=== PATIENT | male | born 1960 | race Caucasian/White ===

== ENCOUNTER 2016-10-10 07:40 | Emergency (ER) | payer OTHER ==
[~2016-10-10] VITALS: Ht 165.1 cm; Wt 67.1 kg
--- OUTSIDE RECORDS SUMMARY | 2016-10-10 07:48 | XMS REPORT | Continuity of Care Document ---
Author Author [facility] Organization [facility] Address Unknown Phone Unavailable Allergies Medications Problems Date Dx Coded Attending Type Code Diagnosis Diagnosed By 10/10/2016 MARILOU LAWRENCE MD Ot 840.4 SPRAIN ROTATOR CUFF 10/10/2016 MARILOU LAWRENCE MD Ot E000.9 UNSPECIFIED EXTERNAL CAUSE STATUS 10/10/2016 MARILOU LAWRENCE MD Ot E849.[address] NOS 10/10/2016 MARILOU LAWRENCE MD Ot E928.9 ACCIDENT NOS 10/10/2016 MARILOU LAWRENCE MD Ot V72.84 EXAM PRE-OPERATIVE NOS Procedures Results Encounters ACCT No. Visit Date/Time Discharge Status Pt. Type Provider Facility Loc./Unit Complaint [id number] 05/10/2013 09:29:00 2012 23:59:59 CLS Outpatient MARILOU LAWRENCE MD [facility] CARD SHLDR RC TEAR [id number] 10/10/2016 07:45:00 ACT Emergency ALBERT REYNA MD [facility] ER RIGHT LEG PAIN
[2016-10-10] MEDS ORDERED: METO-272 PO (08:03)
[2016-10-10] MEDS ORDERED: OMEP20CA12 PO (08:03)
--- NOTE | 2016-10-10 08:25 | ED Lower Extremity ---
General Chief Complaint: Lower Extremity Stated Complaint: RIGHT LEG PAIN Nursing Triage Note: PT CO OF MUSCLE STRAIN R BACK OF LEG FROM BUTTOCKS TO FOOT. WALKS W DIFFICULTY Nursing Sepsis Screen: No Definite Risk Source: patient Exam Limitations: no limitations History of Present Illness Time seen by provider: 08:05 Initial Comments Here with report of right leg pain to the posterior upper leg in the area of the hamstrings. Onset of pain last night after standing up from sitting in a chair after being startled by a loud noise. He had immediate pain to the area of the right hamstring with muscle spasm. Pain is radiating up to the hip and down below the knee currently. He did take ibuprofen 800 mg this morning at about 6 a.m. and that has not helped. He has never had pain like this before. Denies any significant swelling or other injury aside from described above. Onset: yesterday Severity: moderate Pain/Injury Location: right thigh Method of Injury: other Modifying Factors: Improves With Immobilization, Worse With Movement, Improves With Pain Medication Allergies and Home Medications Home Medications Cyclobenzaprine HCl 10 Mg Tablet #15 10 MG PO Q8H PRN PRN SPASMS Prescribed by: ALBERT REYNA on 10/10/16 0850 Hydrocodone/Acetaminophen 1 Each Tablet #14 1 EACH PO Q6H Prescribed by: ALBERT REYNA on 10/10/16 0850 Metoprolol Succinate 50 Mg Tab.er.24h 50 MG PO DAILY (Reported) Omeprazole 20 Mg Capsule.dr 20 MG PO DAILY (Reported) Constitutional: see HPINo chills, No fever Respiratory: no symptoms reported Cardiovascular: no symptoms reported Musculoskeletal: see HPI muscle pain muscle stiffness Skin: no symptoms reported Psychiatric/Neurological: No Symptoms Reported Past Xknmqwf-Pylvkq-Fzvdrl Hx Patient Social History Alcohol Use: Occasionally Uses Recreational Drug Use: No Smoking Status: Current Everyday Smoker Recent Foreign Travel: No Contact w/Someone Who Travel: No Recent Infectious Disease Expo: No Recent Hopitalizations: No Seasonal Allergies Seasonal Allergies: No Surgeries HX Surgeries: No Respiratory Hx Respiratory Disorders: No Cardiovascular Hx Cardiac Disorders: Yes Cardiac Disorders: Hypertension Neurological Hx Neurological Disorders: No Gastrointestinal Hx Gastrointestinal Disorders: Yes Gastrointestinal Disorders: Gastroesophageal Reflux Reviewed Nursing Assessment Reviewed/Agree w Nursing PMH: Yes Family Medical History Significant Family History: No Pertinent Family Hx Physical Exam Vital Signs Vital Sign - Last 12Hours 10/10/16 07:40 Temp 98.8 Pulse 83 Resp 18 B/P 157/85 Pulse Ox 99 Capillary Refill : Less Than 3 Seconds General Appearance: WD/WN no apparent distress Cardiovascular: regular rate, rhythm no murmur Respiratory: lungs clear normal breath sounds Legs: right leg other (muscle spasm noted to the mid posterior right thigh in the area of the hamstrings. Pain noted on palpation. Spasm decreases lower and above. Of concern. He is able to move the leg without weakness but does have some pain on movement. Distal pulses intact bilateral and equal.) Feet: bilateral foot non-tender, bilateral foot normal inspection, bilateral foot normal range of motion, bilateral foot no evidence of injury Neurologic/Psychiatric: alert oriented x 3 Skin: normal color warm/dry Progress/Results/Core Measures Results/Orders Vital Signs/I&O Vital Sign - Last 12Hours 10/10/16 07:40 Temp 98.8 Pulse 83 Resp 18 B/P 157/85 Pulse Ox 99 Blood Pressure Mean: 109 Progress Note : Progress Note Seen and evaluated. Discharged home with return precautions. Patient verbalize understanding instructions and agreement with plan. Departure Impression Impression: Primary Impression: Right hamstring muscle strain Qualified Code: S76.311A - Strain of muscle, fascia and tendon of the posterior muscle group at thigh level, right thigh, initial encounter Disposition: 01 HOME, SELF-CARE Condition: Stable Departure-Patient Inst. Decision time for Depature: 08:30 Referrals: ALBERT PHAM DO (PCP/Family) Primary Care Physician Patient Instructions: Hamstring Muscle Strain (DC) Add. Discharge Instructions: All discharge instructions reviewed with patient and/or family. Voiced understanding. Take medications as directed. Follow-up with your DrJake in a few days for recheck. Return for worse pain, fever, vomiting, weakness, breathing problems or other concerns as needed. You may use icy hot or aspirin cream with lidocaine cream apply to the affected area per package directions. You may use ice packs or heat as needed for comfort. You may take ibuprofen 800 mg every 8 hours as needed for pain as well. Make sure you take this with food or water to prevent stomach upset. Scripts Hydrocodone/Acetaminophen (Hydrocodon-Acetaminoph 7.5-325)1 Each Tablet1 Each PO Q6H #14 TAB Prov:ALBERT REYNA MD 10/10/16 Cyclobenzaprine HCl 10 Mg Tcqtws00 Mg PO Q8H PRN SPASMS #15 TAB Prov:ALBERT REYNA MD 10/10/16 ALBERT REYNA MD Oct 10, 2016 08:25
[2016-10-10] MEDS ORDERED: HYDR-3816 PO (08:50)
[2016-10-10] MEDS ORDERED: CYCL10TA9 PO (08:50)
[2016-10-10 08:55] VITALS: BP 141/77
== END 2016-10-10 08:55 | disposition home or self-care (01) ==
LOC: EDUNIT# 07:40 → ER 07:45
DX: S76.311A Strain of muscle, fascia and tendon of the posterior muscle group at thigh level, right thigh, initial encounter (principal); I10 Essential (primary) hypertension; F17.210 Nicotine dependence, cigarettes, uncomplicated; X50.9XXA Other and unspecified overexertion or strenuous movements or postures, initial encounter; Y99.8 Other external cause status
CPT/HCPCS: 99283

== ENCOUNTER 2016-10-14 12:44 | Emergency (ER) | payer OTHER ==
[~2016-10-14] VITALS: Ht 165.1 cm; Wt 67.1 kg
[~2016-10-14 12:44] MED LIST: CYCL10TA9 PO; HYDR-3816 PO; METO-272 PO; OMEP20CA12 PO
--- OUTSIDE RECORDS SUMMARY | 2016-10-14 12:49 | XMS REPORT | Continuity of Care Document ---
Author Author [facility] Organization [facility] Address Unknown Phone Unavailable Allergies Active Description Code Type Severity Reaction Onset Reported/Identified Relationship to Patient Clinical Status Yes No Known Drug Allergies [id number] Drug Allergy Unknown N/ A 10/10/2016 Medications Problems Date Dx Coded Attending Type Code Diagnosis Diagnosed By 10/10/2016 MARILOU LAWRENCE MD Ot 840.4 SPRAIN ROTATOR CUFF 10/10/2016 MARILOU LAWRENCE MD Ot E000.9 UNSPECIFIED EXTERNAL CAUSE STATUS 10/10/2016 MARILOU LAWRENCE MD Ot E849.[address] NOS 10/10/2016 MARILOU LAWRENCE MD Ot E928.9 ACCIDENT NOS 10/10/2016 MARILOU LAWRENCE MD Ot V72.84 EXAM PRE-OPERATIVE NOS 10/11/2016 ALBERT REYNA MD Ot F17.210 NICOTINE DEPENDENCE, CIGARETTES, UNCOMPL 10/11/2016 ALBERT REYNA MD Ot I10 ESSENTIAL (PRIMARY) HYPERTENSION 10/11/2016 ALBERT REYNA MD Ot S76.301A UNSP INJ MSL/FASC/TND POST GRP AT [facility] LE 10/11/2016 ALBERT REYNA MD Ot S76.311A STRAIN MSL/FASC/TND POST GRP AT [facility] LEV, 10/11/2016 ALBERT REYNA MD Ot X50.9XXA OTHER AND UNSPECIFIED OVREXRTN OR STRNOU 10/11/2016 ALBERT REYNA MD Ot Y99.8 OTHER EXTERNAL CAUSE STATUS Procedures Results Encounters ACCT No. Visit Date/Time Discharge Status Pt. Type Provider Facility Loc./Unit Complaint [id number] 05/10/2013 09:29:00 2012 23:59:59 CLS Outpatient MARILOU LAWRENCE MD [facility] CARD SHLDR RC TEAR [id number] 10/10/2016 07:45:00 ACT Outpatient AXEL MARQUEZ, ALBERT Iyer [facility] ER RIGHT LEG PAIN
--- NOTE | 2016-10-14 14:01 | ED Lower Extremity ---
General Chief Complaint: Lower Extremity Stated Complaint: R HAMSTRING INJ, RAPID SWELLING/BRUISING Nursing Triage Note: AMB TO ROOM WAS SEEN IN ED N FRIDAY DX WITH PULLED HAMSTRING TODAY NOTICED INCREASED SWELLING WITH BRUSING. Nursing Sepsis Screen: No Definite Risk Source: patient Exam Limitations: no limitations History of Present Illness Time seen by provider: 14:01 Initial Comments 56 yo male patient presents to the ED with c/o a pulled hamstring. Patient was seen in the ED last by Dr. Holloway. Patient states today he noticed increased swelling and ecchymosis of the rt medial knee. patient is concerned that something has changed in the last 24 hours. Denies numbness, weakness, SOA , chest pain, fever. Patient has not contacted a PCP or ortho for f/u as instructed by Dr. Holloway. Patient states he has "a lot of medication left from his last ED visit." Onset: other (4-5 days) Pain/Injury Location: right leg, right knee Method of Injury: other (stood up quickly from his chair last .) Modifying Factors: Improves With Immobilization, Worse With Movement, Worse With Other (worse with palpation) Allergies and Home Medications Allergies Coded Allergies: No Known Drug Allergies (Unverified , 10/10/16) Home Medications Cyclobenzaprine HCl 10 Mg Tablet #15 10 MG PO Q8H PRN PRN SPASMS Prescribed by: ALBERT HOLLOWAY on 10/10/16 0850 Hydrocodone/Acetaminophen 1 Each Tablet #14 1 EACH PO Q6H Prescribed by: ALBERT HOLLOWAY on 10/10/16 0850 Metoprolol Succinate 50 Mg Tab.er.24h 50 MG PO DAILY (Reported) Omeprazole 20 Mg Capsule.dr 20 MG PO DAILY (Reported) Constitutional: no symptoms reported Respiratory: no symptoms reported Cardiovascular: no symptoms reported Genitourinary: no symptoms reported Musculoskeletal: No back pain, joint pain (rt knee) muscle pain (rt posterior thigh.) Skin: change in color (ecchymosis rt posterior thigh, buttock and rt knee.) Psychiatric/Neurological: Denies Numbness, Denies Paresthesia, Denies Tingling , Denies Weakness All Other Systems Reviewed Negative Unless Noted: Yes (Negative excepted noted.) Past Chvekpw-Auozic-Wcjbyu Hx Patient Social History Alcohol Use: Occasionally Uses Recreational Drug Use: No Smoking Status: Current Everyday Smoker Recent Foreign Travel: No Contact w/Someone Who Travel: No Recent Infectious Disease Expo: No Recent Hopitalizations: No Seasonal Allergies Seasonal Allergies: No Surgeries HX Surgeries: No Respiratory Hx Respiratory Disorders: No Cardiovascular Hx Cardiac Disorders: Yes Cardiac Disorders: Hypertension Neurological Hx Neurological Disorders: No Gastrointestinal Hx Gastrointestinal Disorders: Yes Gastrointestinal Disorders: Gastroesophageal Reflux Reviewed Nursing Assessment Reviewed/Agree w Nursing PMH: Yes Family Medical History Significant Family History: No Pertinent Family Hx Physical Exam Vital Signs Vital Sign - Last 12Hours 10/14/16 10/14/16 13:28 14:52 Temp 96.9 Pulse 74 Resp 18 B/P 127/70 Pulse Ox 0 Capillary Refill : Less Than 3 Seconds General Appearance: WD/WN no apparent distress Cardiovascular: normal peripheral pulses regular rate, rhythm no edema no murmur Respiratory: lungs clear normal breath sounds no respiratory distress Hips: left hip non-tender, left hip normal inspection, left hip normal range of motion, left hip no evidence of injury, right hip ecchymosis (posterior buttock and proximal thigh.), right hip limited range of motion, right hip pain , right hip soft tissue tenderness (posterior buttock), right hip swelling (rt buttock) Legs: left leg non-tender, left leg normal inspection, left leg normal range of motion, left leg no evidence of injury, right leg ecchymosis (posterior thigh ), right leg limited range of motion, right leg pain, right leg soft tissue tenderness (posterior thigh), right leg swelling (posterior thigh) Knees: left knee non-tender, left knee normal inspection, left knee normal range of motion, left knee no evidence of injury, right knee ecchymosis (medial rt knee), right knee pain, right knee soft tissue tenderness, right knee swelling (medial rt knee) Ankles: bilateral ankle non-tender, bilateral ankle normal inspection, bilateral ankle normal range of motion, bilateral ankle no evidence of injury Feet: bilateral foot non-tender, bilateral foot normal inspection, bilateral foot normal range of motion, bilateral foot no evidence of injury Neurologic/Tendon: normal sensation normal motor functions normal tendon functions responds to pain no evidence tendon injury Neurologic/Psychiatric: no motor/sensory deficits alert normal mood/affect oriented x 3 Skin: normal color warm/dry ecchymosis (rt buttock, posterior rt thigh, and medial rt knee) Progress/Results/Core Measures Results/Orders Vital Signs/I&O Vital Sign - Last 12Hours 10/14/16 10/14/16 13:28 14:52 Temp 96.9 Pulse 74 0 Resp 18 0 B/P 127/70 Pulse Ox 0 Blood Pressure Mean: 89 Departure Communication Progress Notes Patient seen and evaluated. Patient denies need for pain medication at this time. engineer technician states they do have an opening for an MRI of the RLE. This examiner notified by RN that patient was not in his room when MRI went to get him for the study. Patient is no longer in the ED or ED lobby. Patient has apparently left AMA without notifying staff. Dr. Gooden notified of patient leaving AMA. Impression Impression: Primary Impression: Left against medical advice Additional Impression: Hamstring strain Qualified Code: S76.311D - Strain of muscle, fascia and tendon of the posterior muscle group at thigh level, right thigh, subsequent encounter Disposition: 07 AGAINST MEDICAL ADVICE Condition: Against Medical Advice Departure-Patient Inst. Referrals: NO,LOCAL PHYSICIAN (PCP/Family) Primary Care Physician IBRAHIMA DUNN Oct 14, 2016 14:01
[2016-10-14 14:52] VITALS: BP 0/0
== END 2016-10-14 14:52 | disposition left against medical advice (07) ==
LOC: EDUNIT# 12:44 → ER 12:45
DX: S76.311A Strain of muscle, fascia and tendon of the posterior muscle group at thigh level, right thigh, initial encounter (principal); F17.210 Nicotine dependence, cigarettes, uncomplicated; X58.XXXA Exposure to other specified factors, initial encounter; Y99.8 Other external cause status; Z53.29 Procedure and treatment not carried out because of patient's decision for other reasons
CPT/HCPCS: 99283

== ENCOUNTER 2017-11-22 13:52 | Inpatient (IN) | payer BC, OTHER ==
[~2017-11-22] VITALS: Ht 165.1 cm; Wt 64.1 kg
[~2017-11-22 13:52] MED LIST changes: +HYDR-34 PO; -HYDR-3816 PO; -METO-272 PO; +METO-370 PO
[2017-11-22] MEDS ORDERED: ACETAMINOPHEN 500 MG TAB (TYLENOL) PO ONE (14:45)
[2017-11-22] MEDS ORDERED: IBUPROFEN 800 MG (MOTRIN) TAB PO ONE (14:45)
[2017-11-22 15:06] LABS: BASOPHILS % (AUTO) 0 % (0-10); EOSINOPHILS % (AUTO) 0 % (0-10); HEMATOCRIT 35 % (40-54); HEMOGLOBIN 13.1 G/DL (13.3-17.7); LYMPHOCYTES # (AUTO) 1.2 X 10^3 (1.0-4.0); LYMPHOCYTES % (AUTO) 12 % (12-44); MEAN CORPUSCULAR HEMOGLOBIN 34 PG (25-34); MEAN CORPUSCULAR HGB CONC 37 G/DL (32-36); MEAN CORPUSCULAR VOLUME 91 FL (80-99); MONOCYTES # (AUTO) 1.2 X 10^3 (0.0-1.0); MONOCYTES % (AUTO) 13 % (0-12); NEUTROPHILS # (AUTO) 7.2 X 10^3 (1.8-7.8); NEUTROPHILS % (AUTO) 75 % (42-75); PLATELET COUNT 198 10^3/uL (130-400); RED BLOOD COUNT 3.85 10^6/uL (4.35-5.85); WHITE BLOOD COUNT 9.6 10^3/uL (4.3-11.0)
[2017-11-22 15:22] LABS: ALANINE AMINOTRANSFERASE 13 U/L (0-55); ALBUMIN 3.8 GM/DL (3.2-4.5); ALKALINE PHOSPHATASE 70 U/L (40-136); BILIRUBIN,TOTAL 0.3 MG/DL (0.1-1.0); BUN/CREATININE RATIO 10; CALCIUM 8.6 MG/DL (8.5-10.1); CARBON DIOXIDE 20 MMOL/L (21-32); CHLORIDE 91 MMOL/L (98-107); CREATININE SERUM 0.71 MG/DL (0.60-1.30); GFR ESTIMATED > 60; GLUCOSE 108 MG/DL (70-105); POTASSIUM 3.4 MMOL/L (3.6-5.0); TOTAL PROTEIN 6.9 GM/DL (6.4-8.2)
[2017-11-22 15:25] LABS: SODIUM 122 MMOL/L (135-145)
[2017-11-22] MEDS ORDERED: NS W/KCL 20 MEQ/L 1,000 ML IV ONE (15:30)
--- NOTE | 2017-11-22 15:30 | Diagnostic Imaging Report ---
INDICATION: Fever. EXAMINATION: PA and lateral chest at 3:37 p.m. FINDINGS: The heart size is within normal limits and stable when compared to 05/10/2013. In the interval since the prior study, a vague area of increased density has developed in the left superhilar region and to a lesser extent the left infrahilar region. I do suspect that this finding is secondary to mild pneumonia/atelectasis. The right lung is clear. There is no sign of a pleural effusion. The mediastinum is not widened. The osseous structures are intact. IMPRESSION: In the interval since the prior study, mild left perihilar pneumonia/atelectasis has developed. A followup exam should be considered for further evaluation. Dictated by: Dictated on workstation # [id number]
[2017-11-22] MEDS ORDERED: cefTRIAXone INJECTION 1,000 MG in NS (IVPB) 100 ML IV ONE (15:45)
[2017-11-22] MEDS ORDERED: IOHEXOL 350 MG/ML 150 ML (OMNIPAQUE 350) VIAL IV ONE (16:00)
[2017-11-22] MEDS ORDERED: NS 100 ML (IVPB) BAG IV ONE (16:00)
--- NOTE | 2017-11-22 16:43 | Diagnostic Imaging Report ---
PROCEDURE: CT angiography of the chest with contrast. TECHNIQUE: Multiple contiguous axial images were obtained through the chest after uneventful bolus administration of intravenous contrast. Reconstructed CTA MIP acquisitions were also performed. INDICATION: Fever, short of air, cough. FINDINGS: There is groundglass infiltrate in the left upper lobe. The left lower lobe and the right lung are clear. There is no effusion or pneumothorax. There is no mediastinal mass or adenopathy. There is no aortic dissection. There is no pulmonary embolus. IMPRESSION: There is left upper lobe infiltrate consistent with pneumonia. There is no pulmonary embolus. Dictated by: Dictated on workstation # [id number]
[2017-11-22 17:02] VITALS: BP 113/69
[2017-11-22] MEDS ORDERED: AZITHROMYCIN 500 MG/NS 250 ML IVPB IV NR ×2 (17:14)
[2017-11-22] MEDS ORDERED: ACETAMINOPHEN 500 MG TAB (TYLENOL) PO PRN (17:15)
--- NOTE | 2017-11-22 17:26 | History & Physical-Hospitalist ---
History of Present Illness HPI/Chief Complaint Pt is a 57yoCM with a PMH of tobacco abuse and HTN who presented to the ER with a 4 day history of fever. He was seen at an Urgent Care on 11/20 and was treated for the flu but was tested and flu negative. He continued to worsen and get fevers despite treatment with Tamiflu. He also developed diarrhea. He presented back to the Urgent Care this morning and was given antibiotics but continued to feel worse. At that time upon his 's insistence he presented to the ER for evaluation. He complains of body aches, fatigue, and a headache. He has had a cough as well with some sputum production. He denies any sick contacts. He has no previous history of pneumonia. He reports feeling okay now since his fever has gone down. He was found to have a SERGEY pneumonia on CT chest and was admitted to the hospital for failed outpatient abx. Source: patient Date Seen 11/22/17 Time Seen by Provider: 17:10 Attending Physician Debby Vick MD PCP Grace Santillan Referring Physician Date of Admission Nov 22, 2017 at 15:45 Home Medications & Allergies Home Medications Reviewed patient Home Medication Reconciliation performed by pharmacy medication reconciliations conveyor technician and/or nursing. Patients Allergies have been reviewed. Allergies Allergies Coded Allergies No Known Drug Allergies (Unverified10/10/16) Past Treepkz-Qmbjbr-Cjgnxd Hx Past Med/Social Hx: Reviewed Nursing Past Med/Soc Hx, Reviewed and Corrections made Patient Social History Marrital Status: Employed/Student: employed Alcohol Use: Regular Use (4-5 beers per day) Number of Drinks Today: AA Alcohol Beverage of Choice: Beer Recreational Drug Use: No Smoking Status: Current Everyday Smoker Cigaretts per day: 20 Type Used: Cigarettes Recent Foreign Travel: No Contact w/other who traveled: No Recent Hopitalizations: No Recent Infectious Disease Expo: No Seasonal Allergies Seasonal Allergies: No Past Medical History Surgeries: Orthopedic (shoulder) Cardiac: Hypertension Gastrointestinal: Gastroesophageal Reflux Family History Reviewed and Corrections made Heart Disease, Cancer, Hypertension Review of Systems Constitutional: chills, fever, malaise, weakness EENTM: No blurred vision, No double vision, No nose congestion, No throat pain Respiratory: cough, No dyspnea on exertion, No hemoptysis, phlegm, No short of breath, No wheezing Cardiovascular: No chest pain, No edema, No palpitations Gastrointestinal: No abdominal pain, No constipation, No diarrhea, No nausea, No vomiting Genitourinary: No dysuria, No frequency Musculoskeletal: No joint pain, No muscle pain Skin: No lesions, No rash Psychiatric/Neurological: Denies Headache, Denies Numbness, Denies Tingling Physical Exam Physical Exam Vital Signs Vital Signs - First Documented 11/22/17 14:30 Temp 102.4 Pulse 97 Resp 18 B/P (MAP) 113/98 (103) Pulse Ox 97 O2 Delivery Room Air Capillary Refill : Less Than 3 Seconds General Appearance: No Apparent Distress, WD/WN HEENT: PERRL/EOMI, Moist Mucous Membranes, No Scleral Icterus (L), No Scleral Icterus (R) Neck: Non Tender, Supple, No JVD, No Thyromegaly Respiratory: No Respiratory Distress, Crackles Cardiovascular: Regular Rate, Rhythm, No Murmur, Normal Peripheral Pulses Gastrointestinal: Normal Bowel Sounds, Non Tender, Soft Extremity: Normal Capillary Refill, No Calf Tenderness, No Pedal Edema Neurologic/Psychiatric: Alert, Oriented x3, No No Motor/Sensory Deficits, Normal Mood/Affect, No Aphasia, No Facial Droop Skin: Normal Color, Warm/Dry Results Results/Procedures Labs Laboratory Tests 11/22/17 14:58 11/23/17 06:02 Patient resulted labs reviewed. Imaging: Reviewed Imaging Films Assessment/Plan Admission Diagnosis Sepsis due to CAP Admission Status: Inpatient Order (span 2 midnights) Reason for Inpatient Admission: failed outpatient antibiotics Diagnosis/Problems Diagnosis/Problems (1) Pneumonia Status: Acute Assessment & Plan: Failed outpatient antibiotics Will continue CAP coverage with Rocephin and Azithromycin Qualifiers: Pneumonia type: due to unspecified organism Laterality: left Lung location: upper lobe of lung Qualified Codes: J18.1 - Lobar pneumonia, unspecified organism (2) Essential (primary) hypertension Status: Chronic Assessment & Plan: Low to normotensive on arrival Will hold home meds (3) Hyponatremia Status: Acute Assessment & Plan: likely beer potomania from daily alcohol use Trend (4) Hypokalemia Status: Acute Assessment & Plan: Resolved (5) Tobacco abuse Status: Chronic Assessment & Plan: Recommended cessation >3m spent on cessation therapy He would like to quit and has not smoke since this started 3 days ago Has tried in the past and failed SO at bedside and very encouraging He is considering stopping cold turkey (6) Prophylactic measure Assessment & Plan: SCDs IVF reg diet Clinical Quality Measures Sepsis: Within 3hrs of presentation: Admin ABX, Blood cultures prior to ABX's, Lactate level Pneumonia: Pseudomonal Risk: No known risk Smoking Cessation Counseling: Counseling-Symptomatic: 3-10 Minutes Discussed Options Including: Chantix, Nicotine Patch DEBBY VICK MD Nov 22, 2017 5:26 pm
[2017-11-22] MEDS: NS W/KCL 20 MEQ/L 1,000 ML IV SCH (17:41)
[2017-11-22] MEDS: LOPERAMIDE 2 MG (IMODIUM) CAP PO PRN (18:29)
--- NOTE | 2017-11-22 18:30 | ED Cough/URI ---
General Chief Complaint: Cough/Cold/Flu Symptoms Stated Complaint: PNEUMONIA,HYPONATREMIA,HYPOKALEMIA Nursing Triage Note: TO ROOM REPORTS HAS BEEN SICK SINCE FRIDAY. WAS SEEN AT [facility] AND STARTED ON TAMIFLU CON'T TO HAVE TEMP WAS SEEN AT [facility] TODAY FOR CON'T TEMP. STARTED ON ZITHROMAX. Source: patient History of Present Illness Date Seen by Provider: Nov 22, 2017 Time Seen by Provider: 14:35 Initial Comments PT STATES HE BEGAN GETTING SICK ON Friday11/20/17 HAS HAD FEVER UP TO 103.3--HAD 800 MG IBUPROFEN AT 1330 TODAY C/O NON-PRODUCTIVE COUGH C/O HEADACHE C/O BODY ACHES C/O GENERALIZED WEAKNESS NO CHEST PAIN OR SHORTNESS OF BREATH NO NECK STIFFNESS OR SORENESS NO NAUSEA/VOMITING/DIARRHEA OR ABDOMINAL PAIN BUT HAS HAD DECREASED APPETITE NO KNOWN SICK CONTACTS DID NOT RECEIVE FLU VACCINATION THIS YEAR PT WAS SEEN AT [facility] ON FRIDAY AND TESTED NEGATIVE FOR INFLUENZA BUT WAS PLACED ON TAMIFLU DUE TO SYMPTOMS CONSISTENT WITH INFLUENZA PT WAS SEEN THERE AGAIN AT 10 AM TODAY BECAUSE SYMPTOMS WERE NOT BETTER. WAS PRESCRIBED CEFDINIR AND ZITHROMAX--HAS HAD ONE DOSE OF EACH TODAY PT STATES HE HAS CONTINUED TO FEEL WORSE, SO CAME HERE NO HISTORY OF RESPIRATORY OR CARDIAC PROBLEMS HAS BEEN DX WITH HTN IN THE PAST, BUT IS NOT TAKING ANY MEDICATION FOR IT. 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 PHAM LEFT THE PRACTICE. Allergies and Home Medications Allergies Coded Allergies: No Known Drug Allergies (Unverified , 10/10/16) Home Medications Metoprolol Succinate 50 Mg Tab.er.24h, 100 MG PO DAILY, (Reported) Omeprazole 20 Mg Capsule.dr, 20 MG PO DAILY, (Reported) Patient Home Medication List Home Medication List Reviewed: Yes Constitutional: see HPI, chills, fever, malaise, weakness EENTM: no symptoms reported, No blurred vision, No nose congestion, No throat pain Respiratory: see HPI, cough, No phlegm, No short of breath, No wheezing Cardiovascular: no symptoms reported, No chest pain, No edema, No palpitations , No syncope, No vascular heart diseas Gastrointestinal: see HPI, No abdominal pain, No diarrhea, loss of appetite, No nausea, No vomiting Genitourinary: no symptoms reported, No decreased output Musculoskeletal: see HPI, other (BODY ACHES) Skin: no symptoms reported, No rash Psychiatric/Neurological: See HPI, Headache, Denies Numbness, Denies Paresthesia, Denies Seizure, Denies Tingling, Denies Tremors, Denies Weakness Hematologic/Lymphatic: No Symptoms Reported Immunological/Allergic: no symptoms reported Past Zdhosxk-Tilrnl-Wcfuzj Hx Patient Social History Alcohol Use: Regular Use Number of Drinks Today: AA Alcohol Beverage of Choice: Beer Recreational Drug Use: No Smoking Status: Current Everyday Smoker (1 PPD) Type Used: Cigarettes (1 PPD) Recent Foreign Travel: No Contact w/Someone Who Travel: No Recent Infectious Disease Expo: No Recent Hopitalizations: No Seasonal Allergies Seasonal Allergies: No Surgeries History of Surgeries: Yes (3 LEFT AND 3 RIGHT SHOULDER SURGERIES. ONE LEFT SHOULDER SURGERY WAS FOR AC SEPARATION, ALL OTHERS WERE FOR ROTATOR CUFF PROBLEMS. ) Surgeries: Orthopedic (shoulder) Respiratory History of Respiratory Disorde: Yes Respiratory Disorders: Sleep Apnea Currently Using CPAP: No Currently Using BIPAP: No Cardiovascular History of Cardiac Disorders: Yes (NO MEDICATIONS) Cardiac Disorders: Hypertension Neurological History of Neurological Disord: No Reproductive System HIV/AIDS: No Genitourinary History of Genitourinary Disor: No Gastrointestinal History of Gastrointestinal Di: Yes (NO MEDICATIONS) Gastrointestinal Disorders: Gastroesophageal Reflux, Hemorrhoids Musculoskeletal History of Musculoskeletal Dis: Yes (JOINTS HURT;MULTIPLE BILATERAL SHOULDER SURGERIES) Musculoskeletal Disorders: Arthritis Endocrine History of Endocrine Disorders: No HEENT History of HEENT Disorders: No Loss of Vision: Denies Hearing Impairment: Denies Cancer History of Cancer: No Psychosocial History of Psychiatric Problem: No Integumentary History of Skin or Integumenta: No Blood Transfusions History of Blood Disorders: No Family Medical History Significant Family History: Heart Disease, Cancer, Hypertension Family Medial History: Wisdom's disease Arthritis 19 FATHER 19 MOTHER Asthma G8 BROTHER Colon cancer 19 FATHER Hypercholesterolemia 19 FATHER Hypertension 19 FATHER Myocardial infarction 19 FATHER Thyroid disease G8 SISTER Physical Exam Vital Signs Vital Signs - First Documented 11/22/17 14:30 Temp 102.4 Pulse 97 Resp 18 B/P (MAP) 113/98 (103) Pulse Ox 97 O2 Delivery Room Air Capillary Refill : Less Than 3 Seconds General Appearance: WD/WN, no apparent distress, other (FACE VERY FLUSHED. MILDLY LETHARGIC. 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 ) Focused Exam Evaluation Lactate Level Laboratory Tests 11/22/17 14:58: Lactic Acid Level 0.53 Lactic Acid Level Laboratory Tests Test 11/22/17 14:58 Lactic Acid Level 0.53 MMOL/L (0.50-2.00) Progress/Results/Core Measures Suspected Sepsis Recent Fever Within 48 Hours: Yes Infection Criteria Present: Suspected New Infection New/Unexplained Altered Menta: No Sepsis Screen: No Definite Risk Sepsis Diagnosis: SIRS Temperature:97.4 Pulse: 88 Respiratory Rate: 18 Laboratory Tests 11/22/17 14:58: White Blood Count 9.6 Blood Pressure 127 /78 Mean: 103 Laboratory Tests 11/22/17 14:58: Lactic Acid Level 0.53 Laboratory Tests 11/22/17 14:58: Creatinine 0.71, Platelet Count 198, Total Bilirubin 0.3 Results/Orders Lab Results Laboratory Tests Test 11/22/17 14:58 Range/Units White Blood Count 9.6 4.3-11.0 10^3/uL Red Blood Count 3.85 L 4.35-5.85 10^6/uL Hemoglobin 13.1 L 13.3-17.7 G/DL Hematocrit 35 L 40-54 % Mean Corpuscular Volume 91 80-99 FL Mean Corpuscular Hemoglobin 34 25-34 PG Mean Corpuscular Hemoglobin Concent 37 H 32-36 G/DL Red Cell Distribution Width 11.0 10.0-14.5 % Platelet Count 198 130-400 10^3/uL Mean Platelet Volume 9.0 7.4-10.4 FL Neutrophils (%) (Auto) 75 42-75 % Lymphocytes (%) (Auto) 12 12-44 % Monocytes (%) (Auto) 13 H 0-12 % Eosinophils (%) (Auto) 0 0-10 % Basophils (%) (Auto) 0 0-10 % Neutrophils # (Auto) 7.2 1.8-7.8 X 10^3 Lymphocytes # (Auto) 1.2 1.0-4.0 X 10^3 Monocytes # (Auto) 1.2 H 0.0-1.0 X 10^3 Eosinophils # (Auto) 0.0 0.0-0.3 10^3/uL Basophils # (Auto) 0.0 0.0-0.1 10^3/uL Sodium Level 122 *L 135-145 MMOL/L Potassium Level 3.4 L 3.6-5.0 MMOL/L Chloride Level 91 L 98-107 MMOL/L Carbon Dioxide Level 20 L 21-32 MMOL/L Anion Gap 11 5-14 MMOL/L Blood Urea Nitrogen 7 7-18 MG/DL Creatinine 0.71 0.60-1.30 MG/DL Estimat Glomerular Filtration Rate > 60 BUN/Creatinine Ratio 10 Glucose Level 108 H 70-105 MG/DL Lactic Acid Level 0.53 0.50-2.00 MMOL/L Calcium Level 8.6 8.5-10.1 MG/DL Total Bilirubin 0.3 0.1-1.0 MG/DL Aspartate Amino Transf (AST/SGOT) 18 5-34 U/L Alanine Aminotransferase (ALT/SGPT) 13 0-55 U/L Alkaline Phosphatase 70 40-136 U/L Total Protein 6.9 6.4-8.2 GM/DL Albumin 3.8 3.2-4.5 GM/DL Micro Results Microbiology 11/22/17 Influenza Types A,B Antigen (AVERY) - Final, Complete My Orders Orders - FLORYAMYA Marleni DO Saline Lock/Iv-Start (11/22/17 14:33) Monitor-Rhythm Ecg Trace Only (11/22/17 14:33) Cbc With Automated Diff (11/22/17 14:33) Comprehensive Metabolic Panel (11/22/17 14:33) Lactic Acid Analyzer (11/22/17 14:33) Blood Culture (11/22/17 14:33) Influenza A And B Antigens (11/22/17 14:33) Chest Pa/Lat (2 View) (11/22/17 14:33) Ibuprofen Tablet (Motrin Tablet) (11/22/17 14:45) Acetaminophen Tablet (Tylenol Tablet) (11/22/17 14:45) Ns W/Kcl 20 Meq/L (Ns Iv W/Kcl 20 Meq/L) (11/22/17 15:30) Ceftriaxone Injection (Rocephin Injectio (11/22/17 15:45) Medications Given in ED Current Medications Medications Dose Ordered Sig/Mackenzie Route Start Time Stop Time Status Last Admin Dose Admin Acetaminophen 1,000 mg ONCE ONCE PO 11/22/17 14:45 11/22/17 14:46 DC 11/22/17 15:39 1,000 MG Ceftriaxone Sodium 1000 mg/ Sodium Chloride 100 ml @ 200 mls/hr ONCE ONCE IV 11/22/17 15:45 11/22/17 16:14 DC 11/22/17 15:48 200 MLS/HR Potassium Chloride/Sodium Chloride 1,000 ml @ 100 mls/hr Q10H ONCE IV 11/22/17 15:30 11/22/17 17:11 DC 11/22/17 15:48 100 MLS/HR Vital Signs/I&O Vital Sign - Last 12Hours 11/22/17 14:30 Temp 102.4 Pulse 97 Resp 18 B/P (MAP) 113/98 (103) Pulse Ox 97 O2 Delivery Room Air Capillary Refill : Less Than 3 Seconds Blood Pressure Mean: 103 Progress Note : Progress Note NO DETERIORATION IN PT'S CONDITION DURING ER STAY TEMP BEGINNING TO COME DOWN AT TIME OF ADMIT. NO COUGH NOTED DURING ER STAY Diagnostic Imaging Comments CXR--LEFT PERIHILAR PNEUMONIA, PER RADIOLOGIST REPORT @ 1531 CT CHEST ANGIOGRAM--SERGEY INFILTRATE, NO P.E. --PER RADIOLOGIST REPORT @ 1653 Reviewed: Reviewed by Me Departure Communication (Admissions) Progress Notes 1545--SPOKE WITH DR. RIVERA, ACCEPTS PT FOR ADMIT. Impression Impression: Primary Impression: SERGEY PNEUMONIA Additional Impressions: Hyponatremia Hypokalemia Disposition: ADMITTED INPATIENT Condition: Improved Admissions Decision to Admit Reason: Admit from ER (General) Decision to Admit/Date: Nov 22, 2017 Time/Decision to Admit Time: 15:45 Departure-Patient Inst. Referrals: DONNA,BESSIE DIRECTOR TELEVISION (PCP) Primary Care Physician JORDAN RUTH DO Nov 22, 2017 18:29
[2017-11-22 19:02] VITALS: BP 124/75
[2017-11-22] MEDS ORDERED: RT-ALBUTEROL/IPRATROPIUM 3 ML (DUONEB) VIAL INH PRN (20:30)
[2017-11-22 21:15] VITALS: BP 139/83
[2017-11-22] MEDS: RT-ALBUTEROL/IPRATROPIUM 3 ML (DUONEB) VIAL INH SCH (21:20)
[2017-11-22] MEDS: IBUPROFEN 800 MG (MOTRIN) TAB PO PRN (23:59)
[2017-11-23] VITALS: BP 160/74
[2017-11-23] MEDS: NS W/KCL 20 MEQ/L 1,000 ML IV SCH ×3 (02:32→15:22)
[2017-11-23 04:00] VITALS: BP 117/63
[2017-11-23] MEDS: LOPERAMIDE 2 MG (IMODIUM) CAP PO PRN ×3 (05:09→15:22)
[2017-11-23] MEDS: LACTOBACILLUS Acidoph/Bulgar (LACTINEX/FLORANEX) TAB PO SCH ×3 (05:09→16:37)
[2017-11-23 06:35] LABS: BASOPHILS % (AUTO) 0 % (0-10); EOSINOPHILS % (AUTO) 0 % (0-10); HEMATOCRIT 37 % (40-54); HEMOGLOBIN 13.3 G/DL (13.3-17.7); LYMPHOCYTES # (AUTO) 1.1 X 10^3 (1.0-4.0); LYMPHOCYTES % (AUTO) 14 % (12-44); MEAN CORPUSCULAR HEMOGLOBIN 34 PG (25-34); MEAN CORPUSCULAR HGB CONC 36 G/DL (32-36); MEAN CORPUSCULAR VOLUME 92 FL (80-99); MEAN PLATELET VOLUME 9.3 FL (7.4-10.4); MONOCYTES # (AUTO) 1.1 X 10^3 (0.0-1.0); MONOCYTES % (AUTO) 15 % (0-12); NEUTROPHILS # (AUTO) 5.4 X 10^3 (1.8-7.8); NEUTROPHILS % (AUTO) 71 % (42-75); PLATELET COUNT 209 10^3/uL (130-400); RED BLOOD COUNT 3.97 10^6/uL (4.35-5.85); RED CELL DISTRIBUTION WIDTH 11.3 % (10.0-14.5); WHITE BLOOD COUNT 7.6 10^3/uL (4.3-11.0)
[2017-11-23 07:00] LABS: BUN/CREATININE RATIO 9; CARBON DIOXIDE 19 MMOL/L (21-32); CHLORIDE 102 MMOL/L (98-107); CREATININE SERUM 0.67 MG/DL (0.60-1.30); POTASSIUM 4.5 MMOL/L (3.6-5.0); SODIUM 129 MMOL/L (135-145)
[2017-11-23 07:01] LABS: ALANINE AMINOTRANSFERASE 14 U/L (0-55); ALBUMIN 3.6 GM/DL (3.2-4.5); ALKALINE PHOSPHATASE 69 U/L (40-136); BILIRUBIN,TOTAL 0.2 MG/DL (0.1-1.0); CALCIUM 8.4 MG/DL (8.5-10.1); GFR ESTIMATED > 60; GLUCOSE 97 MG/DL (70-105); TOTAL PROTEIN 6.7 GM/DL (6.4-8.2)
[2017-11-23] MEDS ORDERED: INFLUENZA TRIvalent 2017-2018 0.5 ML/45 MCG SYR IM ONE (07:30)
[2017-11-23 08:00] VITALS: BP 152/72
[2017-11-23] MEDS: IBUPROFEN 800 MG (MOTRIN) TAB PO PRN (10:04)
--- NOTE | 2017-11-23 11:33 | Progress Note-Hospitalist ---
Subjective HPI/CC On Admission Date Seen by Provider: Nov 23, 2017 Time Seen by Provider: 11:31 Pt is a 57yoCM with a PMH of tobacco abuse and HTN who presented to the ER with a 4 day history of fever. He was seen at an Urgent Care on 11/20 and was treated for the flu but was tested and flu negative. He continued to worsen and get fevers despite treatment with Tamiflu. He also developed diarrhea. He presented back to the Urgent Care this morning and was given antibiotics but continued to feel worse. At that time upon his 's insistence he presented to the ER for evaluation. He complains of body aches, fatigue, and a headache. He has had a cough as well with some sputum production. He denies any sick contacts. He has no previous history of pneumonia. He reports feeling okay now since his fever has gone down. He was found to have a SERGEY pneumonia on CT chest and was admitted to the hospital for failed outpatient abx. Subjective/Events-last exam Pt complains of ever and feeling hot but getting better. He has continued to have diarrhea as well (started prior to admission on 11/20 when placed on Tamiflu ). He otherwise has no complaints. Focused Exam Evaluation Lactate Level Laboratory Tests 11/22/17 14:58: Lactic Acid Level 0.53 Objective Exam Vital Signs Vital Signs Date Time Temp Pulse Resp B/P (MAP) Pulse Ox O2 Delivery O2 Flow Rate FiO2 11/22/17 14:30 102.4 97 18 113/98 (103) 97 Room Air Capillary Refill : Less Than 3 Seconds General Appearance: No Apparent Distress, WD/WN Respiratory: No Accessory Muscle Use, No Respiratory Distress, Crackles (left base) Cardiovascular: Regular Rate, Rhythm, No Murmur Gastrointestinal: Normal Bowel Sounds, Non Tender, Soft Extremity: No Calf Tenderness, No Pedal Edema Neurologic/Psychiatric: Alert, Oriented x3, Normal Mood/Affect Results/Procedures Lab Laboratory Tests 11/22/17 14:58 11/23/17 06:02 Patient resulted labs reviewed. Assessment/Plan Assessment and Plan Assess & Plan/Chief Complaint Sepsis CAP Diagnosis/Problems Diagnosis/Problems (1) Pneumonia Status: Acute Assessment & Plan: Failed outpatient abx Remains febrile overnight Continue Tylenol and Ibuprofen Continue Rocephin and Azithro Will consult Pulm Qualifiers: Pneumonia type: due to unspecified organism Laterality: left Lung location: upper lobe of lung Qualified Codes: J18.1 - Lobar pneumonia, unspecified organism (2) Hypokalemia Status: Resolved Assessment & Plan: Resolved with fluids (3) Hyponatremia Status: Acute Assessment & Plan: Likely due to beer potomania Improving with IVF trend (4) Tobacco abuse Status: Chronic Assessment & Plan: Recommended cessation 11/22 So far attempting cold turkey- declining nicotine patch (5) Essential (primary) hypertension Status: Chronic Assessment & Plan: Trending up today Will monitor and resume home meds if stay high (6) Alcohol dependence Assessment & Plan: No symptoms of withdrawal Last drink was 11/19 Has gone days without drinking in the past and has never had withdrawal Qualifiers: Substance use status: uncomplicated Qualified Codes: F10.20 - Alcohol dependence, uncomplicated (7) Prophylactic measure Assessment & Plan: Lovenox Reg Diet NS+ 20KCL at 75ml/hr Clinical Quality Measures DVT/VTE Risk/Contraindication: Risk Factor Score Per Nursin RFS Level Per Nursing on Admit: 2=Moderate DEBBY RIVERA MD Nov 23, 2017 11:33 am
[2017-11-23 12:00] VITALS: BP 118/59
[2017-11-23] MEDS ORDERED: AZIT250T12 PO (13:38)
[2017-11-23] MEDS ORDERED: CEFD300C3 PO (13:38)
[2017-11-23] MEDS ORDERED: METO100T12 PO (13:38)
[2017-11-23] MEDS ORDERED: IBUP-1780 PO (13:38)
[2017-11-23] MEDS ORDERED: OSEL75CA15 PO (13:38)
[2017-11-23] MEDS ORDERED: CYCL10TA9 PO (13:38)
[2017-11-23] MEDS: RT-ALBUTEROL/IPRATROPIUM 3 ML (DUONEB) VIAL INH SCH ×3 (15:00→20:39)
[2017-11-23] MEDS: ENOXAPARIN 40 MG/0.4 ML (LOVENOX) SYR SC SCH (15:23)
[2017-11-23] MEDS: cefTRIAXone 1 GM/NS 100 ML IVPB IV SCH ×2 (16:37)
[2017-11-23 16:43] VITALS: BP 119/63
[2017-11-23] MEDS: AZITHROMYCIN 250 MG TAB (ZITHROMAX) PO SCH (18:27)
[2017-11-23 20:00] VITALS: BP 133/83
[2017-11-24] VITALS: BP 134/62
[2017-11-24 04:00] VITALS: BP 112/56
[2017-11-24] MEDS: LACTOBACILLUS Acidoph/Bulgar (LACTINEX/FLORANEX) TAB PO SCH ×3 (04:57→16:51)
[2017-11-24 06:20] LABS: BASOPHILS % (AUTO) 0 % (0-10); EOSINOPHILS # (AUTO) 0.1 10^3/uL (0.0-0.3); EOSINOPHILS % (AUTO) 1 % (0-10); HEMATOCRIT 33 % (40-54); HEMOGLOBIN 12.2 G/DL (13.3-17.7); LYMPHOCYTES # (AUTO) 1.6 X 10^3 (1.0-4.0); LYMPHOCYTES % (AUTO) 23 % (12-44); MEAN CORPUSCULAR HEMOGLOBIN 34 PG (25-34); MEAN CORPUSCULAR HGB CONC 37 G/DL (32-36); MEAN CORPUSCULAR VOLUME 92 FL (80-99); MEAN PLATELET VOLUME 9.2 FL (7.4-10.4); MONOCYTES # (AUTO) 1.3 X 10^3 (0.0-1.0); MONOCYTES % (AUTO) 18 % (0-12); NEUTROPHILS # (AUTO) 4.2 X 10^3 (1.8-7.8); NEUTROPHILS % (AUTO) 59 % (42-75); PLATELET COUNT 223 10^3/uL (130-400); RED BLOOD COUNT 3.61 10^6/uL (4.35-5.85); RED CELL DISTRIBUTION WIDTH 11.4 % (10.0-14.5); WHITE BLOOD COUNT 7.2 10^3/uL (4.3-11.0)
[2017-11-24 06:32] LABS: BUN/CREATININE RATIO 6; CALCIUM 8.2 MG/DL (8.5-10.1); CARBON DIOXIDE 19 MMOL/L (21-32); CHLORIDE 99 MMOL/L (98-107); CREATININE SERUM 0.63 MG/DL (0.60-1.30); GFR ESTIMATED > 60; GLUCOSE 104 MG/DL (70-105); POTASSIUM 3.8 MMOL/L (3.6-5.0); SODIUM 126 MMOL/L (135-145)
[2017-11-24] MEDS: NS W/KCL 20 MEQ/L 1,000 ML IV SCH ×3 (06:35→21:12)
[2017-11-24] MEDS: RT-ALBUTEROL/IPRATROPIUM 3 ML (DUONEB) VIAL INH SCH ×3 (07:23→19:22)
--- NOTE | 2017-11-24 07:56 | Pulmonary Consultation ---
History of Present Illness History of Present Illness Date of Consultation 11/24/17 07:50 Time Seen by Provider: 07:51 Date of Admission History of Present Illness 57yo with hx of tobacco use and HTN presented to ED after 4 days of worsening fever, diarrhea, body aches. He was seen on 11/20 at Urgent Care and treated for the flu. pt was dx with pneumonia in the ED failed out patient treatment and admitted for inpatient treatment. I am consulted for pulmonary management. Allergies and Home Medications Allergies Coded Allergies: No Known Drug Allergies (Unverified , 10/10/16) Home Medications Azithromycin 250 Mg Tablet, 250 MG PO DAILY, (Reported) FILLED 11/22/17 #6 FOR A 5 DAY THERAPY / 500 MG DAY 1, THEN 250 MG DAYS 2-5 Cefdinir 300 Mg Capsule, 300 MG PO BID, (Reported) FILLED 11/22/17 #20 FOR A 10 DAY THERAPY Ibuprofen 800 Mg Tablet, 800 MG PO Q8H PRN for HEADACHE, (Reported) Metoprolol Tartrate 100 Mg Tablet, 100 MG PO DAILY, (Reported) Omeprazole 20 Mg Capsule.dr, 20 MG PO DAILY, (Reported) Oseltamivir Phosphate 75 Mg Capsule, 75 MG PO BID, (Reported) FILLED 11/20/17 #10 FOR A 5 DAY THERAPY Past Dugetoq-Gypfrp-Mvrntc Hx Patient Social History Alcohol Use: Regular Use Number of Drinks Today: AA Alcohol Beverage of Choice: Beer Recreational Drug Use: No Smoking Status: Current Everyday Smoker (1 PPD) Type Used: Cigarettes (1 PPD) Recent Foreign Travel: No Contact w/Someone Who Travel: No Recent Infectious Disease Expo: No Recent Hopitalizations: No Seasonal Allergies Seasonal Allergies: No Surgeries History of Surgeries: Yes (3 LEFT AND 3 RIGHT SHOULDER SURGERIES. ONE LEFT SHOULDER SURGERY WAS FOR AC SEPARATION, ALL OTHERS WERE FOR ROTATOR CUFF PROBLEMS. ) Surgeries: Orthopedic (shoulder) Respiratory History of Respiratory Disorde: Yes Respiratory Disorders: Sleep Apnea Currently Using CPAP: No Currently Using BIPAP: No Cardiovascular History of Cardiac Disorders: Yes (NO MEDICATIONS) Cardiac Disorders: Hypertension Neurological History of Neurological Disord: No Reproductive System HIV/AIDS: No Genitourinary History of Genitourinary Disor: No Gastrointestinal History of Gastrointestinal Di: Yes (NO MEDICATIONS) Gastrointestinal Disorders: Gastroesophageal Reflux, Hemorrhoids Musculoskeletal History of Musculoskeletal Dis: Yes (JOINTS HURT;MULTIPLE BILATERAL SHOULDER SURGERIES) Musculoskeletal Disorders: Arthritis Endocrine History of Endocrine Disorders: No HEENT History of HEENT Disorders: No Loss of Vision: Denies Hearing Impairment: Denies Cancer History of Cancer: No Psychosocial History of Psychiatric Problem: No Integumentary History of Skin or Integumenta: No Blood Transfusions History of Blood Disorders: No Family Medical History Significant Family History: Heart Disease, Cancer, Hypertension Family Medial History: [place]'s disease Arthritis 19 FATHER 19 MOTHER Asthma G8 BROTHER Colon cancer 19 FATHER Hypercholesterolemia 19 FATHER Hypertension 19 FATHER Myocardial infarction 19 FATHER Thyroid disease G8 SISTER Review of Systems Time Seen by Provider: 08:01 Constitutional: Fever, Chills, Sweats, Weakness, Malaise Eyes: No: Pain, Vision change, Conjunctivae inflammation, Eyelid inflammation, Other, Redness ENT: Nose discharge, Nose congestion Respiratory: Cough, Dry, Shortness of breath, SOB with excertion Musculoskeletal: back pain Neurological: Weakness, No: Change in speech, Confusion Exam Exam Vital Signs Date Time Temp Pulse Resp B/P (MAP) Pulse Ox O2 Delivery O2 Flow Rate FiO2 11/24/17 07:35 94 Room Air 11/24/17 07:00 75 11/24/17 04:00 100.1 82 18 112/56 (74) 94 Room Air 11/24/17 01:00 95 11/24/17 00:00 100.6 86 16 134/62 (86) 96 Room Air 11/23/17 21:00 Room Air 11/23/17 20:39 93 Room Air 11/23/17 20:00 100.9 82 16 133/83 (100) 99 Room Air 11/23/17 19:00 77 11/23/17 16:43 97.1 72 18 119/63 (81) 98 Room Air 11/23/17 15:25 98 Room Air 11/23/17 13:00 87 11/23/17 12:00 99.4 80 18 118/59 (78) 95 Room Air 11/23/17 10:14 101.0 11/23/17 09:36 Room Air 11/23/17 09:00 101.8 11/23/17 08:00 100.1 89 18 152/72 (98) 100 Room Air I & O 11/24/17 07:00 Intake Total 4165 ml Output Total 2075 ml Balance 2090 ml General Appearance: No Apparent Distress, WD/WN HEENT: PERRL/EOMI, Moist Mucous Membranes, No Scleral Icterus (L), No Scleral Icterus (R) Neck: Non Tender, Supple, No JVD, No Thyromegaly Respiratory: No Accessory Muscle Use, No Respiratory Distress, Crackles (left base) Cardiovascular: Regular Rate, Rhythm, No Murmur Capillary Refill: Less Than 3 Seconds Gastrointestinal: normal bowel sounds, non tender, soft, no organomegaly Extremity: No Calf Tenderness, No Pedal Edema Neurologic/Psychiatric: Alert, Oriented x3, Normal Mood/Affect Skin: Normal Color, Warm/Dry Results Lab Laboratory Tests 11/22/17 14:58 11/23/17 06:02 11/24/17 05:50 Assessment/Plan Assessment/Plan Pneumonia - SERGEY - failed out patient treatment -Continue Rocephin and azithromycin - -Await cultures Hyponatremia - monitor Tobacco use -education Alcohol dependance -education 254 SHERYL CALIX DO Nov 24, 2017 07:55
[2017-11-24 08:00] VITALS: BP 124/67
[2017-11-24] MEDS: ENOXAPARIN 40 MG/0.4 ML (LOVENOX) SYR SC SCH (11:03)
[2017-11-24 12:00] VITALS: BP 130/74
--- NOTE | 2017-11-24 14:23 | Progress Note-Hospitalist ---
Subjective HPI/CC On Admission Date Seen by Provider: Nov 24, 2017 Time Seen by Provider: 14:18 Pt is a 57yoCM with a PMH of tobacco abuse and HTN who presented to the ER with a 4 day history of fever. He was seen at an Urgent Care on 11/20 and was treated for the flu but was tested and flu negative. He continued to worsen and get fevers despite treatment with Tamiflu. He also developed diarrhea. He presented back to the Urgent Care this morning and was given antibiotics but continued to feel worse. At that time upon his 's insistence he presented to the ER for evaluation. He complains of body aches, fatigue, and a headache. He has had a cough as well with some sputum production. He denies any sick contacts. He has no previous history of pneumonia. He reports feeling okay now since his fever has gone down. He was found to have a SERGEY pneumonia on CT chest and was admitted to the hospital for failed outpatient abx. 11/24. The patient reports he is feeling much better. He is maximum temperature in the hospital has been 103.6. Over the last 24 hours his MAXIMUM TEMPERATURE has been 100.6. He reports he is not coughing up anything to speak of. He does not feel short of breath. He is anxious to leave and would like to go today but will compromise on tomorrow.. Physical exam: He is alert and oriented. Lungs are clear to auscultation. CV is regular without murmur. Impression: Left upper lobe pneumonia, community-acquired. 2.tobaccoism Plan: Likely discharged tomorrow. Focused Exam Evaluation Lactate Level Laboratory Tests 11/22/17 14:58: Lactic Acid Level 0.53 Objective Exam Vital Signs Vital Signs Date Time Temp Pulse Resp B/P (MAP) Pulse Ox O2 Delivery O2 Flow Rate FiO2 11/22/17 14:30 102.4 97 18 113/98 (103) 97 Room Air Capillary Refill : Less Than 3 Seconds Results/Procedures Lab Laboratory Tests 11/24/17 05:50 Patient resulted labs reviewed. Imaging: Reviewed Imaging Films Clinical Quality Measures DVT/VTE Risk/Contraindication: Risk Factor Score Per Nursin RFS Level Per Nursing on Admit: 2=Moderate Pneumonia: Pseudomonal Risk: No known risk Smoking Cessation Counseling: Counseling-Symptomatic: 3-10 Minutes Discussed Options Including: Chantix, Nicotine Patch JAIME ACOSTA MD Nov 24, 2017 14:23
[2017-11-24 15:43] VITALS: BP 107/72
[2017-11-24] MEDS: cefTRIAXone 1 GM/NS 100 ML IVPB IV SCH ×2 (16:51)
[2017-11-24] MEDS: AZITHROMYCIN 250 MG TAB (ZITHROMAX) PO SCH (16:51)
[2017-11-24 19:33] VITALS: BP 115/69
[2017-11-25] VITALS: BP 137/76
[2017-11-25 04:00] VITALS: BP 123/80
[2017-11-25] MEDS: LACTOBACILLUS Acidoph/Bulgar (LACTINEX/FLORANEX) TAB PO SCH ×2 (05:35→10:45)
[2017-11-25 08:00] VITALS: BP 108/69
[2017-11-25] MEDS: RT-ALBUTEROL/IPRATROPIUM 3 ML (DUONEB) VIAL INH SCH (09:06)
[2017-11-25 09:14] VITALS: BP 123/80
[2017-11-25] MEDS ORDERED: RT-ALBUTEROL/IPRATROPIUM 3 ML (DUONEB) VIAL INH PRN (09:30)
--- NOTE | 2017-11-25 10:16 | Progress Note-Hospitalist ---
Progress Note HPI/CC on Admission Pt is a 57yoCM with a PMH of tobacco abuse and HTN who presented to the ER with a 4 day history of fever. He was seen at an Urgent Care on 11/20 and was treated for the flu but was tested and flu negative. He continued to worsen and get fevers despite treatment with Tamiflu. He also developed diarrhea. He presented back to the Urgent Care this morning and was given antibiotics but continued to feel worse. At that time upon his 's insistence he presented to the ER for evaluation. He complains of body aches, fatigue, and a headache. He has had a cough as well with some sputum production. He denies any sick contacts. He has no previous history of pneumonia. He reports feeling okay now since his fever has gone down. He was found to have a SERGEY pneumonia on CT chest and was admitted to the hospital for failed outpatient abx. 11/24. The patient reports he is feeling much better. He is maximum temperature in the hospital has been 103.6. Over the last 24 hours his MAXIMUM TEMPERATURE has been 100.6. He reports he is not coughing up anything to speak of. He does not feel short of breath. He is anxious to leave and would like to go today but will compromise on tomorrow.. Physical exam: He is alert and oriented. Lungs are clear to auscultation. CV is regular without murmur. Impression: Left upper lobe pneumonia, community-acquired. 2.tobaccoism Plan: Likely discharged tomorrow. Progress Notes/Assess & Plan Date Seen 11/25/17 Time Seen by Provider: 10:12 Diagonsis/Assessment & Plan The patient is to feel better. He is afebrile. His cough has decreased and there is minimum sputum production. He is a candidate for discharge after seeing Dr. Guerra today. Physical exam: Lungs are distant but clear. CV is regular. Extremities show no pedal edema. Impression: Community-acquired pneumonia, left upper lobe. 2.tobaccoism new Plan: Await Dr. Guerra's visit Focused Exam Evaluation Lactate Level Laboratory Tests 11/22/17 14:58: Lactic Acid Level 0.53 JAIME ACOSTA MD Nov 25, 2017 10:16
[2017-11-25] MEDS: NS W/KCL 20 MEQ/L 1,000 ML IV SCH (10:45)
[2017-11-25] MEDS: ENOXAPARIN 40 MG/0.4 ML (LOVENOX) SYR SC SCH (10:45)
[2017-11-25 12:00] VITALS: BP 116/77
--- NOTE | 2017-11-25 13:37 | Discharge Instructions ---
Discharge Instructions Patient Instructions Patient Instructions: Take the azithromycin and the Omnicef as previously prescribed until all tablets are gone. Use Tylenol 650 as needed for fever. Make appointment to see Dr. Guerra at his office in about 2 weeks. Increase activity as tolerated Return to The Hospital For: Increasing shortness of breath or other decline in performance Activity & Diet Discharge Diet: No Restrictions Activity as Tolerated: Yes JAIME ACOSTA MD Nov 25, 2017 13:37
[2017-11-25 14:00] VITALS: BP 116/77
[2017-11-25] MEDS ORDERED: RT-ALBUTEROL/IPRATROPIUM 3 ML (DUONEB) VIAL INH SCH (21:00)
== END 2017-11-25 14:00 | disposition home or self-care (01) | DRG 194 ==
LOC: EDUNIT# 13:52 → ER 13:55 → 4TH 15:45 → UNDOADMIN 15:45
PROVIDERS: ADMIT Family Medicine; ATTEND Family Medicine
DX: J18.9 Pneumonia, unspecified organism (principal); E87.1 Hypo-osmolality and hyponatremia; E87.6 Hypokalemia; I10 Essential (primary) hypertension; K21.9 Gastro-esophageal reflux disease without esophagitis; F17.210 Nicotine dependence, cigarettes, uncomplicated; G47.30 Sleep apnea, unspecified; M19.91 Primary osteoarthritis, unspecified site; R19.7 Diarrhea, unspecified; F10.20 Alcohol dependence, uncomplicated
CPT/HCPCS: 36415; 71046; 71275; 80048; 80053; 83605; 85025; 87040; 87070; 87205; 87324; 87449; 87804; 87899; 94640; 94760; 96361; 96365

== ENCOUNTER 2019-04-01 09:27 | Emergency (ER) | payer BC, OTHER ==
[~2019-04-01] VITALS: Ht 165.1 cm; Wt 67.1 kg
[~2019-04-01 09:27] MED LIST changes: +AZIT250T12 PO; +CEFD300C3 PO; +IBUP-1780 PO; +METO100T12 PO; -OMEP20CA12 PO; +OMEP20CA13 PO; +OSEL75CA15 PO
[2019-04-01] MEDS ORDERED: diphenhydrAMINE 50 MG/ML INJ (BENADRYL) IV STA (09:43)
[2019-04-01] MEDS ORDERED: FAMOTIDINE 20MG/2ML IV (PEPCID) IV STA (09:43)
[2019-04-01] MEDS ORDERED: methylPREDNISolone 125 MG (Solu-MEDROL) VIAL IV STA (09:43)
[2019-04-01] MEDS ORDERED: EPINEPHrine INJECTION 1 MG/ML AMP IM ONE (09:45)
--- NOTE | 2019-04-01 09:54 | ED Integumentary General ---
General Chief Complaint: Allergic Reaction Stated Complaint: ALLERGIC REACTION Nursing Triage Note: Patient ambulatory to ER room 7 with complaint of insect bite approximately 20 minutes ago. Patient states he felt something sting his left chin area while outside working. Patient states he had swelling present to his face shortly after the sting. He denies any shortness of breath or throat feeling tight. 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 DIGGING--WAS IN A [employer] AREA ) AND FELT SOMETHING STING HIM ON LEFT CHEEK--OCCURRED 20 MINUTES PRIOR TO ARRIVA DID NOT SEE WHAT STUNG HIM IS HAVING SWELLING AND ITCHING TO LEFT CHEEK AND JAW AND NECK NO PROBLEMS BREATHING OR SWALLOWING NO SWELLING OF TONGUE STATES SHE HAS BEEN STUNG MULTIPLE TIMES IN HIS LIFE BY BEES, WASPS, ETC, AND HAS NEVER HAD ANY REACTION LIKE THIS HAS NOT TAKEN ANYTHING FOR SYMPTOMS 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 Allergies and Home Medications Allergies Coded Allergies: No Known Drug Allergies (Unverified , 10/10/16) Home Medications Ibuprofen 800 Mg Tablet, 800 MG PO Q8H PRN for HEADACHE, (Reported) Metoprolol Tartrate 100 Mg Tablet, 100 MG PO DAILY, (Reported) Omeprazole 20 Mg Capsule.dr, 20 MG PO DAILY, (Reported) Prednisone 10 Mg Tab, 40 MG PO DAILY Prescribed by: JORDAN RUTH on 04/01/19 1037 Patient Home Medication List Home Medication List Reviewed: Yes Review of Systems Review of Systems Constitutional: no symptoms reported EENTM: see HPI Respiratory: no symptoms reported; No cough, No short of breath, No wheezing Cardiovascular: no symptoms reported; No chest pain, No syncope Gastrointestinal: no symptoms reported Genitourinary: no symptoms reported Musculoskeletal: no symptoms reported Skin: see HPI Psychiatric/Neurological: No Symptoms Reported; Denies Headache, Denies Numbness, Denies Paresthesia Endocrine: No Symptoms Reported Hematologic/Lymphatic: No Symptoms Reported Past Iazktgc-Rgkxpi-Bjmyyt Hx Patient Social History Alcohol Use: Regular Use ("2 OR 3 BEERS AT NIGHT" ) Number of Drinks Today: AA Alcohol Beverage of Choice: Beer Recreational Drug Use: No Smoking Status: Current Everyday Smoker (2 PPD) Type Used: Cigarettes 2nd Hand Smoke Exposure: Yes Recent Foreign Travel: No Contact w/Someone Who Travel: No Recent Infectious Disease Expo: No Recent Hopitalizations: No Immunizations Up To Date PED Vaccines UTD: Yes Seasonal Allergies Seasonal Allergies: No Past Medical History Surgeries: Yes (MULTIPLE BILATERAL SHOULDER SURGERIES--3 ON LEFT, 3 ON RIGHT; WITH ONE LEFT SHOULDER SURGERY FOR AC SEPARATION, ALL OTHERS WERE FOR ROTATOR CUFF PROBLEMS) Orthopedic Respiratory: Yes (SUSPECTED COPD) Sleep Apnea Currently Using CPAP: No Currently Using BIPAP: No Cardiac: Yes Hypertension Neurological: No HIV/AIDS: No Genitourinary: No Gastrointestinal: Yes Gastroesophageal Reflux, Hemorrhoids Musculoskeletal: Yes (JOINTS HURT;MULTIPLE BILATERAL SHOULDER SURGERIES) Arthritis Endocrine: No HEENT: No Loss of Vision: Denies Hearing Impairment: Denies Cancer: No Psychosocial: No Integumentary: No Blood Disorders: No Family Medical History [place]'s disease Arthritis 19 FATHER 19 MOTHER Asthma G8 BROTHER Colon cancer 19 FATHER Hypercholesterolemia 19 FATHER Hypertension 19 FATHER Myocardial infarction 19 FATHER Thyroid disease G8 SISTER Heart Disease, Cancer, Hypertension Physical Exam Vital Signs Vital Signs - First Documented 04/01/19 09:29 Temp 98.5 Pulse 72 Resp 14 B/P (MAP) 142/87 (105) Pulse Ox 98 O2 Delivery Room Air Capillary Refill : Less Than 3 Seconds General Appearance: WD/WN, no apparent distress, other (STRONG ODOR OF ETOH) HEENT: PERRL/EOMI, other (SIGNIFICANT SWELLING TO LEFT SIDE OF FACE/CHEEK/JAW/LATERAL NECK. WITH SLIGHT SWELLING TO LOWER AND UPPER LEFT EYELIDS. NO SWELLING OF TONGUE. ) Neck: non-tender, full range of motion, other ( ABOVE) Cardiovascular: regular rate, rhythm, no murmur Respiratory: no respiratory distress, no accessory muscle use, wheezing (FAINT EXPIRATORY WHEEZING. 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 ) Progress/Results/Core Measures Results/Orders My Orders Orders - JORDAN RUTH DO Ed Iv/Invasive Line Start (04/01/19 09:43) Monitor-Rhythm Ecg Trace Only (04/01/19 09:43) Famotidine Injection (Pepcid Injection) (04/01/19 09:43) Diphenhydramine Injection (Benadryl Inje (04/01/19 09:43) Methylprednisolone Sod Succ (Solu-Medrol (04/01/19 09:43) Epinephrine 1 Mg Injection (Adrenalin I (04/01/19 09:45) Medications Given in ED Current Medications Medications Dose Ordered Sig/Mackenzie Route Start Time Stop Time Status Last Admin Dose Admin Epinephrine HCl 0.3 mg ONCE ONCE IM 04/01/19 09:45 04/01/19 09:46 DC 04/01/19 10:00 0.3 MG Vital Signs/I&O 04/01/19 09:29 Temp 98.5 Pulse 72 Resp 14 B/P (MAP) 142/87 (105) Pulse Ox 98 O2 Delivery Room Air Blood Pressure Mean: 105 Progress Progress Note : Progress Note GIVEN EPINEPHRINE, SOLU-MEDROL, BENADRYL, PEPCID--WITH IMMEDIATE AND SIGNIFICANT IMPROVEMENT IN SWELLING, AND FACE IS MUCH LESS RED PT OBSERVED IN ER WITH CONTINUED IMPROVEMENT NO DETERIORATION IN PTS' CONDITION DURING ER STAY Departure Impression Primary Impression: INSECT BITE LEFT FACE WITH LOCAL ALLERGIC REACTION Disposition: HOME, SELF-CARE Condition: Improved Departure-Patient Inst. Referrals: BESSIE THOMPSON (PCP/Family) Primary Care Physician Patient Instructions: Insect Allergy, Insect Bites and Stings (DC) Add. Discharge Instructions: COOL COMPRESSES TO AREA AT 20 MINUTE INTERVALS CLARITIN 10 MG IN AM, BENADRYL 50 MG IN PM NEEDED FOR SWELLING AND ITCHING OTC PEPCID AC --UP TO 40 MG TWICE A DAY NEEDED FOR SWELLING AND ITCHING RETURN TO ER IF SYMPTOMS WORSEN All discharge instructions reviewed with patient and/or family. Voiced unde rstanding. Scripts Prednisone (Prednisone) 10 Mg Tab 40 MG PO DAILY, #12 TAB Prov: JORDAN RUTH DO 04/01/19 JORDAN RUTH DO Apr 01, 2019 09:54
[2019-04-01] MEDS ORDERED: VARE1TAB21 PO (10:06)
--- NOTE | 2019-04-01 10:06 | NUR ---
Swelling to face has greatly improved. Patient continues to deny any shortness of breath or throat swelling. Patient states the itching has improved.
[2019-04-01] MEDS ORDERED: PRD10T PO (10:37)
--- NOTE | 2019-04-01 10:55 | NUR ---
Patient sleeping. No signs of distress present. Vital signs stable.
[2019-04-01 11:20] VITALS: BP 125/77
== END 2019-04-01 11:21 | disposition home or self-care (01) ==
LOC: EDUNIT# 09:27 → ER 09:28
DX: S00.86XA Insect bite (nonvenomous) of other part of head, initial encounter (principal); T78.49XA Other allergy, initial encounter; I10 Essential (primary) hypertension; G47.30 Sleep apnea, unspecified; K21.9 Gastro-esophageal reflux disease without esophagitis; F17.210 Nicotine dependence, cigarettes, uncomplicated; Z80.0 Family history of malignant neoplasm of digestive organs; Z82.49 Family history of ischemic heart disease and other diseases of the circulatory system; W57.XXXA Bitten or stung by nonvenomous insect and other nonvenomous arthropods, initial encounter
CPT/HCPCS: 93041; 96372; 96374; 96375

== ENCOUNTER 2019-04-01 15:57 | Emergency (ER) | payer OTHER ==
[~2019-04-01] VITALS: Ht 165.1 cm; Wt 67.1 kg
[~2019-04-01 15:57] MED LIST changes: +PRD10T PO; +VARE1TAB21 PO
--- OUTSIDE RECORDS SUMMARY | 2019-04-01 16:14 | XMS REPORT | Continuity of Care Document ---
Author Organization Unknown Address Unknown Phone Unavailable Allergies Active Description Code Type Severity Reaction Onset Reported/Identified Relationship to Patient Clinical Status Yes No Known Drug Allergies [id number] Drug Allergy Unknown N/A 10/10/2016 Medications There is no data. Problems Date Dx Coded Attending Type Code [...] S76.301A UNSP INJ MSL/FASC/TND POST GRP AT [facility] LE 10/11/2016 ALBERT REYNA MD Ot S76.311A STRAIN MSL/FASC/TND POST GRP AT [facility], 10/11/2016 ALBERT REYNA MD Ot X50.9XXA OTHER AND UNSPECIFIED OVREXRTN OR STRNOU 10/11/2016 ALBERT REYNA MD Ot Y99.8 OTHER EXTERNAL CAUSE STATUS 10/14/2016 ALBERT REYNA MD Ot F17.210 NICOTINE DEPENDENCE, CIGARETTES, UNCOMPL 10/14/2016 ALBERT REYNA MD Ot I10 ESSENTIAL (PRIMARY) HYPERTENSION 10/14/2016 ALBERT REYNA MD Ot S76.301A UNSP INJ MSL/FASC/TND POST GRP AT [facility] 10/14/2016 ALBERT REYNA MD Ot S76.311A STRAIN MSL/FASC/TND POST GRP AT [facility] LEV, 10/14/2016 ALBERT REYNA MD Ot X50.9XXA OTHER AND UNSPECIFIED OVREXRTN OR STRNOU 10/14/2016 ALBERT REYNA MD Ot Y99.8 OTHER EXTERNAL CAUSE STATUS 10/14/2016 IBRAHIMA RIVERA Ot F17.210 NICOTINE DEPENDENCE, CIGARETTES, UNCOMPL 10/14/2016 IBRAHIMA RIVERA Ot S76.311A STRAIN MSL/FASC/TND POST GRP AT [facility], 10/14/2016 IBRAHIMA RIVERA Ot X58.XXXA EXPOSURE TO OTHER SPECIFIED FACTORS, INI 10/14/2016 IBRAHIMA RIVERA Ot Y99.8 OTHER EXTERNAL CAUSE STATUS 10/14/2016 IBRAHIMA RIVERA Ot Z53.29 PROC/TRTMT NOT CRD OUT BEC PT DECISION F 10/16/2016 IBRAHIMA RIVERA Ot F17.210 NICOTINE DEPENDENCE, CIGARETTES, UNCOMPL 10/16/2016 IBRAHIMA RIVERA Ot S76.311A STRAIN MSL/FASC/TND POST GRP AT [facility], 10/16/2016 IBRAHIMA RIVERA Ot X58.XXXA EXPOSURE TO OTHER SPECIFIED FACTORS, INI 10/16/2016 IBRAHIMA RIVERA Ot Y99.8 OTHER EXTERNAL CAUSE STATUS 10/16/2016 IBRAHIMA RIVERA Ot Z53.29 PROC/TRTMT NOT CRD OUT BEC PT DECISION F 10/18/2016 ALBERT REYNA MD Ot F17.210 NICOTINE DEPENDENCE, CIGARETTES, UNCOMPL 10/18/2016 ALBERT REYNA MD Ot I10 ESSENTIAL (PRIMARY) HYPERTENSION 10/18/2016 ALBERT REYNA MD Ot S76.301A UNSP INJ MSL/FASC/TND POST GRP AT [facility] LE 10/18/2016 ALBERT REYNA MD Ot S76.311A STRAIN MSL/FASC/TND POST GRP AT [facility] LEV, 10/18/2016 ALBERT REYNA MD Ot X50.9XXA OTHER AND UNSPECIFIED OVREXRTN OR STRNOU 10/18/2016 ALBERT REYNA MD Ot Y99.8 OTHER EXTERNAL CAUSE STATUS 10/22/2016 ALBERT REYNA MD Ot F17.210 NICOTINE DEPENDENCE, CIGARETTES, UNCOMPL 10/22/2016 ALBERT REYNA MD Ot I10 ESSENTIAL (PRIMARY) HYPERTENSION 10/22/2016 ALBERT REYNA MD, Ot S76.301A UNSP INJ MSL/FASC/TND POST GRP AT [facility] LE 10/22/2016 ALBERT REYNA MD, Ot S76.311A STRAIN MSL/FASC/TND POST GRP AT [facility] LEV, 10/22/2016 ALBERT REYNA MD, Ot X50.9XXA OTHER AND UNSPECIFIED OVREXRTN OR STRNOU 10/22/2016 ALBERT REYNA MD Ot Y99.8 OTHER EXTERNAL CAUSE STATUS 11/22/2017 MARILOU LAWRENCE MD Ot 840.4 SPRAIN ROTATOR CUFF 11/22/2017 MARILOU LAWRENCE MD Ot E000.9 UNSPECIFIED EXTERNAL CAUSE STATUS 11/22/2017 MARILOU LAWRENCE MD Ot E849.[address] NOS 11/22/2017 MARILOU LAWRENCE MD Ot E928.9 ACCIDENT NOS 11/22/2017 MARILOU LAWRENCE MD Ot V72.84 EXAM PRE-OPERATIVE NOS 11/25/2017 DEBBY RIVERA MD Ot E87.1 HYPO-OSMOLALITY AND HYPONATREMIA 11/25/2017 DEBBY RIVERA MD Ot E87.6 HYPOKALEMIA 11/25/2017 DEBBY RIVERA MD Ot F10.20 ALCOHOL DEPENDENCE, UNCOMPLICATED 11/25/2017 DEBBY RIVERA MD Ot F17.210 NICOTINE DEPENDENCE, CIGARETTES, UNCOMPL 11/25/2017 DEBBY RIVERA MD Ot G47.30 SLEEP APNEA, UNSPECIFIED 11/25/2017 DEBBY RIVERA MD Ot I10 ESSENTIAL (PRIMARY) HYPERTENSION 11/25/2017 DEBBY RIVERA MD Ot J18.9 PNEUMONIA, UNSPECIFIED ORGANISM 11/25/2017 DEBBY RIVERA MD Ot K21.9 GASTRO-ESOPHAGEAL REFLUX DISEASE WITHOUT 11/25/2017 DEBBY RIVERA MD, Ot M19.91 PRIMARY OSTEOARTHRITIS, UNSPECIFIED SITE 11/25/2017 DEBBY RIVERA MD, Ot R19.7 DIARRHEA, UNSPECIFIED Procedures There is no data. Results Test Result Range Blood lactic acid measurement (moles/volume) - 11/22/17 14:58 Blood lactic acid measurement (moles/volume) 0.53 mmol/L 0.50- 2.00 Comprehensive metabolic panel - 11/22/17 14:58 Serum or plasma sodium measurement (moles/volume) 122 mmol/L 135-145 Serum or plasma potassium measurement (moles/volume) 3.4 mmol/L 3.6-5.0 Serum or plasma chloride measurement (moles/volume) 91 mmol/L 98-107 Carbon dioxide 20 mmol/L 21-32 Serum or plasma anion gap determination (moles/volume) 11 mmol/L 5-14 Serum or plasma urea nitrogen measurement (mass/volume) 7 mg/dL 7-18 Serum or plasma creatinine measurement (mass/volume) 0.71 mg/dL 0.60-1.30 Serum or plasma urea nitrogen/creatinine mass ratio 10 NRG Serum or plasma creatinine measurement with calculation of estimated glomerular filtration rate > NRG Serum or plasma glucose measurement (mass/volume) 108 mg/dL 70-105 Serum or plasma calcium measurement (mass/volume) 8.6 mg/dL 8.5-10.1 Serum or plasma total bilirubin measurement (mass/volume) 0.3 mg/dL 0.1-1.0 Serum or plasma alkaline phosphatase measurement (enzymatic activity/volume) 70 U/L 40-136 Serum or plasma aspartate aminotransferase measurement (enzymatic activity/volume) 18 U/L 5-34 Serum or plasma alanine aminotransferase measurement (enzymatic activity/volume) 13 U/L 0-55 Serum or plasma protein measurement (mass/volume) 6.9 g/dL 6.4-8.2 Serum or plasma albumin measurement (mass/volume) 3.8 g/dL 3.2-4.5 Complete blood count (CBC) with automated white blood cell (WBC) differential - 11/22/17 14:58 Blood leukocytes automated count (number/volume) 9.6 10*3/uL 4.3-11.0 Blood erythrocytes automated count (number/volume) 3.85 10*6/uL 4.35-5.85 Venous blood hemoglobin measurement (mass/volume) 13.1 g/dL 13.3-17.7 Blood hematocrit (volume fraction) 35 % 40-54 Automated erythrocyte mean corpuscular volume 91 [fo_us] 80-99 Automated erythrocyte mean corpuscular hemoglobin (mass per erythrocyte) 34 pg 25-34 Automated erythrocyte mean corpuscular hemoglobin concentration measurement (mass/volume) 37 g/dL 32-36 Automated erythrocyte distribution width ratio 11.0 % 10.0- 14.5 Automated blood platelet count (count/volume) 198 10*3/uL 130-400 Automated blood platelet mean volume measurement 9.0 [foz_us] 7.4-10.4 Automated blood neutrophils/100 leukocytes 75 % 42-75 Automated blood lymphocytes/100 leukocytes 12 % 12-44 Blood monocytes/100 leukocytes 13 % 0-12 Automated blood eosinophils/100 leukocytes 0 % 0-10 Automated blood basophils/100 leukocytes 0 % 0-10 Blood neutrophils automated count (number/volume) 7.2 10*3 1.8-7.8 Blood lymphocytes automated count (number/volume) 1.2 10*3 1.0-4.0 Blood monocytes automated count (number/volume) 1.2 10*3 0.0- 1.0 Automated eosinophil count 0.0 10*3/uL 0.0-0.3 Automated blood basophil count (count/volume) 0.0 10*3/uL 0.0-0.1 Bacterial blood culture - 11/22/17 14:58 Bacterial blood culture NG [facility] Influenza virus A and B antigen detection - 11/22/17 15:04 FLU RESULT NEGATIVE FOR INFLUENZA A AND B ANTIGENS BY IA [facility] Bacterial blood culture - 11/22/17 15:10 Bacterial blood culture NG [facility] Sputum Gram stain - 11/22/17 19:48 GRAM STAIN SPUTUM INTERPRET WITH CAUTION [facility] Bacterial sputum culture - 11/22/17 19:48 Bacterial sputum culture NORMAL [facility] Complete blood count (CBC) with automated white blood cell (WBC) differential - 11/23/17 06:02 Blood leukocytes automated count (number/volume) 7.6 10*3/uL 4.3-11.0 Blood erythrocytes automated count (number/volume) 3.97 10*6/uL 4.35-5.85 Venous blood hemoglobin measurement (mass/volume) 13.3 g/dL 13.3-17.7 Blood hematocrit (volume fraction) 37 % 40-54 Automated erythrocyte mean corpuscular volume 92 [foz_us] 80-99 Automated erythrocyte mean corpuscular hemoglobin (mass per erythrocyte) 34 pg 25-34 Automated erythrocyte mean corpuscular hemoglobin concentration measurement (mass/volume) 36 g/dL 32-36 Automated erythrocyte distribution width ratio 11.3 % 10.0- 14.5 Automated blood platelet count (count/volume) 209 10*3/uL 130-400 Automated blood platelet mean volume measurement 9.3 [foz_us] 7.4-10.4 Automated blood neutrophils/100 leukocytes 71 % 42-75 Automated blood lymphocytes/100 leukocytes 14 % 12-44 Blood monocytes/100 leukocytes 15 % 0-12 Automated blood eosinophils/100 leukocytes 0 % 0-10 Automated blood basophils/100 leukocytes 0 % 0-10 Blood neutrophils automated count (number/volume) 5.4 10*3 1.8-7.8 Blood lymphocytes automated count (number/volume) 1.1 10*3 1.0-4.0 Blood monocytes automated count (number/volume) 1.1 10*3 0.0- 1.0 Automated eosinophil count 0.0 10*3/uL 0.0-0.3 Automated blood basophil count (count/volume) 0.0 10*3/uL 0.0-0.1 Comprehensive metabolic panel - 11/23/17 06:02 Serum or plasma sodium measurement (moles/volume) 129 mmol/L 135-145 Serum or plasma potassium measurement (moles/volume) 4.5 mmol/L 3.6-5.0 Serum or plasma chloride measurement (moles/volume) 102 mmol/L 98-107 Carbon dioxide 19 mmol/L 21-32 Serum or plasma anion gap determination (moles/volume) 8 mmol/L 5-14 Serum or plasma urea nitrogen measurement (mass/volume) 6 mg/dL 7-18 Serum or plasma creatinine measurement (mass/volume) 0.67 mg/dL 0.60-1.30 Serum or plasma urea nitrogen/creatinine mass ratio 9 NRG Serum or plasma creatinine measurement with calculation of estimated glomerular filtration rate > NRG Serum or plasma glucose measurement (mass/volume) 97 mg/dL 70-105 Serum or plasma calcium measurement (mass/volume) 8.4 mg/dL 8.5-10.1 Serum or plasma total bilirubin measurement (mass/volume) 0.2 mg/dL 0.1-1.0 Serum or plasma alkaline phosphatase measurement (enzymatic activity/volume) 69 U/L 40-136 Serum or plasma aspartate aminotransferase measurement (enzymatic activity/volume) 18 U/L 5-34 Serum or plasma alanine aminotransferase measurement (enzymatic activity/volume) 14 U/L 0-55 Serum or plasma protein measurement (mass/volume) 6.7 g/dL 6.4-8.2 Serum or plasma albumin measurement (mass/volume) 3.6 g/dL 3.2-4.5 Urine Legionella pneumophila antigen assay - 11/23/17 14:00 Urine Legionella pneumophila antigen assay Negative NRG Streptococcus pneumoniae antigen detection - 11/23/17 14:00 Streptococcus pneumoniae antigen detection Negative [facility] C DIFFICILE AG + TOXIN A/B. - 11/23/17 15:05 RESULTS NEGATIVE FOR ANTIGEN AND TOXIN A/B NRG Complete blood count (CBC) with automated white blood cell (WBC) differential - 11/24/17 05:50 Blood leukocytes automated count (number/volume) 7.2 10*3/uL 4.3-11.0 Blood erythrocytes automated count (number/volume) 3.61 10*6/uL 4.35-5.85 Venous blood hemoglobin measurement (mass/volume) 12.2 g/dL 13.3-17.7 Blood hematocrit (volume fraction) 33 % 40-54 Automated erythrocyte mean corpuscular volume 92 [foz_us] 80-99 Automated erythrocyte mean corpuscular hemoglobin (mass per erythrocyte) 34 pg 25-34 Automated erythrocyte mean corpuscular hemoglobin concentration measurement (mass/volume) 37 g/dL 32-36 Automated erythrocyte distribution width ratio 11.4 % 10.0- 14.5 Automated blood platelet count (count/volume) 223 10*3/uL 130-400 Automated blood platelet mean volume measurement 9.2 [foz_us] 7.4-10.4 Automated blood neutrophils/100 leukocytes 59 % 42-75 Automated blood lymphocytes/100 leukocytes 23 % 12-44 Blood monocytes/100 leukocytes 18 % 0-12 Automated blood eosinophils/100 leukocytes 1 % 0-10 Automated blood basophils/100 leukocytes 0 % 0-10 Blood neutrophils automated count (number/volume) 4.2 10*3 1.8-7.8 Blood lymphocytes automated count (number/volume) 1.6 10*3 1.0-4.0 Blood monocytes automated count (number/volume) 1.3 10*3 0.0- 1.0 Automated eosinophil count 0.1 10*3/uL 0.0-0.3 Automated blood basophil count (count/volume) 0.0 10*3/uL 0.0-0.1 Whole blood basic metabolic panel - 11/24/17 05:50 Serum or plasma sodium measurement (moles/volume) 126 mmol/L 135-145 Serum or plasma potassium measurement (moles/volume) 3.8 mmol/L 3.6-5.0 Serum or plasma chloride measurement (moles/volume) 99 mmol/L 98-107 Carbon dioxide 19 mmol/L 21-32 Serum or plasma anion gap determination (moles/volume) 8 mmol/L 5-14 Serum or plasma urea nitrogen measurement (mass/volume) 4 mg/dL 7-18 Serum or plasma creatinine measurement (mass/volume) 0.63 mg/dL 0.60-1.30 Serum or plasma urea nitrogen/creatinine mass ratio 6 NRG Serum or plasma creatinine measurement with calculation of estimated glomerular filtration rate > NRG Serum or plasma glucose measurement (mass/volume) 104 mg/dL 70-105 Serum or plasma calcium measurement (mass/volume) 8.2 mg/dL 8.5-10.1 Encounters ACCT No. Visit Date/Time Discharge Status Pt. Type Provider Facility Loc./Unit Complaint [id number] 11/22/2017 15:45:00 11/25/2017 14:00:00 DIS Inpatient NICOLE MARQUEZ, DEBBY [facility] 4TH PNEUMONIA,HYPONATREMIA,HYPOKALEMIA [id number] 10/14/2016 12:45:00 10/14/2016 14:52:00 DIS Emergency IBRAHIMA RIVERA [facility] ER R HAMSTRING INJ, RAPID SWELLING/BRUISING [id number] 10/10/2016 07:45:00 10/10/2016 08:55:00 DIS Emergency ALBERT REYNA MD [facility] ER RIGHT LEG PAIN [id number] 05/10/2013 09:29:00 05/10/2013 23:59:59 CLS Outpatient HOWARD MARQUEZ, MARILOU Beaulieu [facility] CELIA DAMON TEAR
[2019-04-01] MEDS ORDERED: EPINEPHrine INJECTION 1 MG/ML AMP IM ONE (16:15)
[2019-04-01] MEDS ORDERED: diphenhydrAMINE 50 MG/ML INJ (BENADRYL) IVP ONE (16:15)
[2019-04-01] MEDS ORDERED: FAMOTIDINE 20MG/2ML IV (PEPCID) IVP ONE (16:15)
[2019-04-01] MEDS ORDERED: methylPREDNISolone 125 MG (Solu-MEDROL) VIAL IVP ONE (16:15)
--- NOTE | 2019-04-01 16:16 | ED Integumentary General ---
General Stated Complaint: FACIAL SWELLING Source: patient (JORDAN NOLAN ) History of Present Illness Date Seen by Provider: Apr 01, 2019 Time Seen by Provider: 16:05 Initial Comments PT ARRIVES VIA POV FROM HOME PT WAS SEEN EARLIER THIS AM, AFTER GETTING STUNG BY UNKNOWN INSECT WHILE WORKING OUTSIDE THIS AM--WAS AT WORK, DIGGING AT THE TIME PT HAD SIGNIFICANT LEFT FACIAL AND JAW SWELLING AT THAT TIME, RESPONDED IMMEDIATELY AND SIGNIFICANTLY WITH MEDICATIONS PT WAS DOING MUCH BETTER AND WAS DISMISSED TO HOME WITH RX FOR PREDNISONE, PT WAS ALSO INSTRUCTED TO TAKE CLARITIN AND BENADRYL, AND WAS INSTRUCTED TO START TAKING PREDNISONE WHEN HE GOT IT FILLED. WAS ALSO ADVISED TO GET OTC PEPCID AND START TAKING IT TWICE A DAY PT STATES HE DID [employer] [facility], BUT HAS NOT TAKEN ANY OF THE MEDICATIONS. PT STATES HE HAS BEEN ASLEEP AND WOKE UP AND IS NOW HAVING RETURN OF SWELLING, BUT IS UNDER CHIN/ANTERIOR NECK AREA NOW. NO PROBLEMS SWALLOWING OR BREATHING, BUT FEELS PRESSURE IN HIS NECK / THROAT DUE TO THE SWELLING NO SHORTNESS OF BREATH OR WHEEZING. NO OTHER NEW SYMPTOMS (JORDAN NOLAN DO) Allergies and Home Medications Allergies Coded Allergies: No Known Drug Allergies (Unverified , 10/10/16) Home Medications Ibuprofen 800 Mg Tablet, 800 MG PO Q8H PRN for HEADACHE, (Reported) Metoprolol Tartrate 100 Mg Tablet, 100 MG PO DAILY, (Reported) Omeprazole 20 Mg Capsule.dr, 20 MG PO DAILY, (Reported) Prednisone 10 Mg Tab, 40 MG PO DAILY Prescribed by: JORDAN NOLAN on 04/01/19 1037 Patient Home Medication List Home Medication List Reviewed: Yes (ALBERT REYNA MD) Review of Systems Review of Systems Constitutional: no symptoms reported EENTM: see HPI Respiratory: no symptoms reported Cardiovascular: no symptoms reported Gastrointestinal: no symptoms reported Musculoskeletal: no symptoms reported Skin: see HPI Psychiatric/Neurological: No Symptoms Reported Endocrine: No Symptoms Reported Hematologic/Lymphatic: No Symptoms Reported (JORDAN NOLAN DO) Past Cqmektv-Bfqhgx-Qlmamx Hx Patient Social History Alcohol Use: Regular Use (" 2 OR 3" DRINKS EVERY NIGHT) Alcohol Beverage of Choice: Beer Recreational Drug Use: No Smoking Status: Current Everyday Smoker (2-3 PPD) Type Used: Cigarettes 2nd Hand Smoke Exposure: Yes Recent Foreign Travel: No Contact w/Someone Who Travel: No Recent Hopitalizations: No (JORDAN NOLAN DO) Immunizations Up To Date PED Vaccines UTD: Yes (JORDAN NOLAN DO) Seasonal Allergies Seasonal Allergies: No (JORDAN NOLAN DO) Past Medical History Surgeries: Yes (MULTIPLE SHOULDER SURGERIES--3 ON LEFT, 3 ON RIGHT, WITH ONE ON LEFT FOR AC SEPARATION BUT ALL OTHERS FOR ROTATOR CUFF PROBLEMS) Orthopedic Respiratory: Yes (SUSPECTED COPD) Sleep Apnea Currently Using CPAP: No Currently Using BIPAP: No Cardiac: Yes Hypertension Neurological: No HIV/AIDS: No Genitourinary: No Gastrointestinal: Yes Gastroesophageal Reflux, Hemorrhoids Musculoskeletal: Yes (JOINTS HURT;MULTIPLE BILATERAL SHOULDER SURGERIES) Arthritis Endocrine: No HEENT: No Loss of Vision: Denies Hearing Impairment: Denies Cancer: No Psychosocial: No Integumentary: No Blood Disorders: No (JORDAN NOLAN DO) Family Medical History Keota's disease Arthritis 19 FATHER 19 MOTHER Asthma G8 BROTHER Colon cancer 19 FATHER Hypercholesterolemia 19 FATHER Hypertension 19 FATHER Myocardial infarction 19 FATHER Thyroid disease G8 SISTER Heart Disease, Cancer, Hypertension (JORDAN NOLAN DO) Physical Exam Vital Signs Vital Signs - First Documented 04/01/19 16:00 Temp 99.7 Pulse 73 Resp 18 B/P (MAP) 139/81 (100) Pulse Ox 97 O2 Delivery Room Air (ALBERT REYNA MD) Vital Signs Capillary Refill : (JORDAN NOLAN DO) General Appearance: WD/WN, no apparent distress HEENT: PERRL/EOMI, pharynx normal, other (NO TONGUE SWELLING; HAS MILD TO MODERATE SWELLING TO TISSUES BELOW CHIN AND ANTERIOR NECK. 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, no motor/sensory deficits, alert, normal mood/affect, oriented x 3 (JORDAN NOLAN DO) Progress/Results/Core Measures Results/Orders Medications Given in ED Current Medications Medications Dose Ordered Sig/Mackenzie Route Start Time Stop Time Status Last Admin Dose Admin Diphenhydramine HCl 50 mg ONCE ONCE IVP 04/01/19 16:15 04/01/19 16:16 DC 04/01/19 16:19 50 MG Epinephrine HCl 0.3 mg ONCE ONCE IM 04/01/19 16:15 04/01/19 16:16 DC 04/01/19 16:17 0.3 MG Famotidine 40 mg ONCE ONCE IVP 04/01/19 16:15 04/01/19 16:16 DC 04/01/19 16:21 40 MG Methylprednisolone Sodium Succinate 125 mg ONCE ONCE IVP 04/01/19 16:15 04/01/19 16:16 DC 04/01/19 16:17 125 MG (ALBERT REYNA MD) Vital Signs/I&O 04/01/19 16:00 Temp 99.7 Pulse 73 Resp 18 B/P (MAP) 139/81 (100) Pulse Ox 97 O2 Delivery Room Air (ALBERT REYNA MD) Progress Progress Note : Progress Note PT GIVEN EPINEPHRINE, SOLU-MEDROL, PEPCID, BENADRYL--AGAIN WITH IMMEDIATE IMPROVEMENT IN SYMPTOMS 1800--CARE TURNED OVER TO DR. REYNA, WILL CONTINUE TO MONITOR PT IN ER (JORDAN NOLAN DO) Progress Note : Progress Note 1830: Assumed care from Dr Nolan. Monitoring Patient. Reexamined the patient and no new findings noted. Continue to monitor. 2015: Symptoms remain resolved. Patient would like to go home and feels better. Without respiratory distress. DC home with return precautions. Pt verbalized understanding of instructions and agreement with plan. (ALBERT REYNA MD) Departure Impression Primary Impression: Allergic reaction to insect sting Qualified Codes: T63.484D - Toxic effect of venom of other arthropod, undetermined, subsequent encounter Disposition: 01 HOME, SELF-CARE Condition: Improved Departure-Patient Inst. Decision time for Depature: 20:14 (ALBERT REYNA MD) Referrals: NO,LOCAL PHYSICIAN (PCP) Primary Care Physician BESSIE THOMPSON (Family) Primary Care Physician Patient Instructions: Insect Bites and Stings (DC), Anaphylaxis (DC) Add. Discharge Instructions: COOL COMPRESSES TO AREA AT 20 MINUTE INTERVALS CLARITIN 10 MG IN AM, BENADRYL 50 MG IN PM NEEDED FOR SWELLING AND ITCHING OTC PEPCID AC --UP TO 40 MG TWICE A DAY NEEDED FOR SWELLING AND ITCHING RETURN TO ER IF SYMPTOMS WORSEN JORDAN NOLAN DO Apr 01, 2019 16:16 ALBERT REYNA MD Apr 01, 2019 20:16
--- NOTE | 2019-04-01 17:13 | NUR ---
Patient awake and alert. He states the pressure in throat has improved. He denies any shortness of breath. Vital signs stable.
--- NOTE | 2019-04-01 18:17 | NUR ---
Patient awake and alert. Spouse at bedside. Patient states he is feeling better and wants to go home. Patient denies any shortness of breath and states he feels like the swelling in his neck has improved. He states he feels like he has a sore throat.
[2019-04-01 20:22] VITALS: BP 137/76
== END 2019-04-01 20:24 | disposition home or self-care (01) ==
LOC: EDUNIT# 15:57 → ER 15:58
DX: T63.481A Toxic effect of venom of other arthropod, accidental (unintentional), initial encounter (principal); I10 Essential (primary) hypertension; K21.9 Gastro-esophageal reflux disease without esophagitis; F17.210 Nicotine dependence, cigarettes, uncomplicated; G47.30 Sleep apnea, unspecified; Z80.0 Family history of malignant neoplasm of digestive organs; Z82.49 Family history of ischemic heart disease and other diseases of the circulatory system
CPT/HCPCS: 93041; 96372; 96374; 96375

== ENCOUNTER 2020-03-08 10:04 | Emergency (ER) | payer BC, OTHER ==
[~2020-03-08] VITALS: Ht 165 cm; Wt 68.0 kg
[~2020-03-08 10:04] MED LIST changes: -METO-370 PO; +METO50TA7 PO; -OMEP20CA13 PO; +OMEP20CA18 PO
[2020-03-08] MEDS ORDERED: morphine INJ 10 MG/ML 1ML (SYR OR VIAL) IV STA (10:26)
[2020-03-08 10:27] LABS: BASOPHILS # (AUTO) 0.1 10^3/uL (0.0-0.1); BASOPHILS % (AUTO) 1 % (0-10); EOSINOPHILS # (AUTO) 0.2 10^3/uL (0.0-0.3); EOSINOPHILS % (AUTO) 3 % (0-10); HEMATOCRIT 37 % (40-54); HEMOGLOBIN 13.6 G/DL (13.3-17.7); LYMPHOCYTES # (AUTO) 2.2 X 10^3 (1.0-4.0); LYMPHOCYTES % (AUTO) 34 % (12-44); MEAN CORPUSCULAR HEMOGLOBIN 34 PG (25-34); MEAN CORPUSCULAR HGB CONC 36 G/DL (32-36); MEAN CORPUSCULAR VOLUME 93 FL (80-99); MONOCYTES % (AUTO) 15 % (0-12); NEUTROPHILS # (AUTO) 3.1 X 10^3 (1.8-7.8); NEUTROPHILS % (AUTO) 48 % (42-75); PLATELET COUNT 223 10^3/uL (130-400); RED CELL DISTRIBUTION WIDTH 11.8 % (10.0-14.5); WHITE BLOOD COUNT 6.5 10^3/uL (4.3-11.0)
--- NOTE | 2020-03-08 10:28 | NUR ---
FACED TIME DR REYNA AND HE WAS PROVIDED A SUMMARY, EKG, AND VS.
[2020-03-08] MEDS ORDERED: ASPIRIN 81 MG CHEW (CHILDREN'S ASA) PO ONE (10:30)
[2020-03-08] MEDS: NITROGLYCERIN 0.4 MG SL TABS BTL 25'S SL PRN ×2 (10:32→10:40)
[2020-03-08 10:38] LABS: ALBUMIN 4.4 GM/DL (3.2-4.5); CHLORIDE 100 MMOL/L (98-107); POTASSIUM 4.2 MMOL/L (3.6-5.0); SODIUM 132 MMOL/L (135-145)
[2020-03-08 10:39] LABS: CALCIUM 8.9 MG/DL (8.5-10.1)
[2020-03-08 10:41] LABS: GLUCOSE 87 MG/DL (70-105); TOTAL PROTEIN 7.5 GM/DL (6.4-8.2)
[2020-03-08 10:42] LABS: BILIRUBIN,TOTAL 0.4 MG/DL (0.1-1.0); CARBON DIOXIDE 21 MMOL/L (21-32)
[2020-03-08 10:44] LABS: ALKALINE PHOSPHATASE 87 U/L (40-136); CREATININE SERUM 0.83 MG/DL (0.60-1.30); GFR ESTIMATED > 60
[2020-03-08 10:45] LABS: BUN/CREATININE RATIO 8
[2020-03-08 10:47] LABS: ALANINE AMINOTRANSFERASE 30 U/L (0-55); MAGNESIUM 1.2 MG/DL (1.6-2.4)
--- OUTSIDE RECORDS SUMMARY | 2020-03-08 10:52 | XMS REPORT | Continuity of Care Document ---
Author Organization Unknown Address Unknown Phone Unavailable Allergies Active Description Code Type Severity Reaction Onset Reported/Identified Relationship to Patient Clinical Status Yes No Known Drug Allergies [id number] Drug Allergy Unknown N/A 10/10/2016 Medications There [...] S76.301A UNSP INJ MSL/FASC/TND POST GRP AT [facility] 10/11/2016 ALBERT REYNA MD Ot S76.311A STRAIN MSL/FASC/TND POST GRP AT [facility], 10/11/2016 ALBERT REYNA MD Ot X50.9XXA OTHER AND UNSPECIFIED OVREXRTN OR STRNOU 10/11/2016 ALBERT REYNA MD Ot Y99.8 OTHER EXTERNAL CAUSE STATUS 10/14/2016 ALBERT REYNA MD Ot F17.210 NICOTINE DEPENDENCE, CIGARETTES, UNCOMPL 10/14/2016 ALBERT REYNA MD Ot I10 ESSENTIAL (PRIMARY) HYPERTENSION 10/14/2016 ALBERT REYNA MD Ot S76.301A UNSP INJ MSL/FASC/TND POST GRP AT [facility] 10/14/2016 ALBERT REYNA MD Ot S76.311A STRAIN MSL/FASC/TND POST GRP AT [facility] LEV, 10/14/2016 ALBERT REYNA MD Ot X50.9XXA OTHER AND UNSPECIFIED OVREXRTN OR STRNOU 10/14/2016 ALBERT REYNA MD Ot Y99.8 OTHER EXTERNAL CAUSE STATUS 10/14/2016 IBRAHIMA RIVERA Ot F17.210 NICOTINE DEPENDENCE, CIGARETTES, UNCOMPL 10/14/2016 IBRAHIMA RIVERA Ot S76.311A STRAIN MSL/FASC/TND POST GRP AT [facility], 10/14/2016 IBRAHIMA RIVERA Ot X58.XXXA EXPOSURE TO OTHER SPECIFIED FACTORS, INI 10/14/2016 IBRAHIMA RIVERA Ot Y99.8 OTHER EXTERNAL CAUSE STATUS 10/14/2016 IBRAHIMA RIVERA Ot Z53.29 PROC/TRTMT NOT CRD OUT BEC PT DECISION F 10/16/2016 IBRAHIMA RIVERA Ot F17.210 NICOTINE DEPENDENCE, CIGARETTES, UNCOMPL 10/16/2016 IBRAHIMA RIVERA Ot S76.311A STRAIN MSL/FASC/TND POST GRP AT [facility], 10/16/2016 IBRAHIMA RIVERA Ot X58.XXXA EXPOSURE TO [...] S76.301A UNSP INJ MSL/FASC/TND POST GRP AT [facility] LE 10/18/2016 ALBERT REYNA MD Ot S76.311A STRAIN MSL/FASC/TND POST GRP AT [facility] LEV, 10/18/2016 ALBERT REYNA MD Ot X50.9XXA OTHER AND UNSPECIFIED OVREXRTN OR STRNOU 10/18/2016 ALBERT REYNA MD Ot Y99.8 OTHER EXTERNAL CAUSE STATUS 10/22/2016 ALBERT REYNA MD Ot F17.210 NICOTINE DEPENDENCE, CIGARETTES, UNCOMPL 10/22/2016 ALBERT REYNA MD Ot I10 ESSENTIAL (PRIMARY) HYPERTENSION 10/22/2016 ALBERT REYNA MD, Ot S76.301A UNSP INJ MSL/FASC/TND POST GRP AT [facility] LE 10/22/2016 ALBERT REYNA MD, Ot S76.311A STRAIN MSL/FASC/TND POST GRP AT [facility] LEV, 10/22/2016 ALBERT REYNA MD, Ot X50.9XXA [...] PRE-OPERATIVE NOS 11/25/2017 DEBBY RIVERA MD Ot E87. 1 HYPO-OSMOLALITY AND HYPONATREMIA 11/25/2017 DEBBY RIVERA MD Ot E87. 6 HYPOKALEMIA 11/25/2017 DEBBY RIVERA MD Ot F10. 20 ALCOHOL DEPENDENCE, UNCOMPLICATED 11/25/2017 DEBBY RIVERA MD Ot F17.210 NICOTINE DEPENDENCE, CIGARETTES, UNCOMPL 11/25/2017 DEBBY RIVERA MD Ot G47. 30 SLEEP APNEA, UNSPECIFIED 11/25/2017 DEBBY RIVERA MD Ot I10 ESSENTIAL (PRIMARY) HYPERTENSION 11/25/2017 DEBBY RIVERA MD Ot J18. 9 PNEUMONIA, UNSPECIFIED ORGANISM 11/25/2017 DEBBY RIVERA MD Ot K21. 9 GASTRO-ESOPHAGEAL REFLUX DISEASE WITHOUT 11/25/2017 DEBBY RIVERA MD, Ot M19. 91 PRIMARY OSTEOARTHRITIS, UNSPECIFIED SITE 11/25/2017 NICOLE MARQUEZ, DEBBY Dean Ot R19. 7 DIARRHEA, UNSPECIFIED 04/05/2019 JORDAN RUTH DO Ot F17.210 NICOTINE DEPENDENCE, CIGARETTES, UNCOMPL 04/05/2019 JORDAN RUTH DO Ot G47.30 SLEEP APNEA, UNSPECIFIED 04/05/2019 JORDAN RUTH DO Ot I10 ESSENTIAL (PRIMARY) HYPERTENSION 04/05/2019 FLORY SCHUSTER JORDAN Yepez Ot K21.9 GASTRO-ESOPHAGEAL REFLUX DISEASE WITHOUT 04/05/2019 JORDAN RUTH DO Ot S00.86X A INSECT BITE (NONVENOMOUS) OF OTHER PART 04/05/2019 JORDAN RUTH DO Marleni Ot T78.49X A OTHER ALLERGY, INITIAL ENCOUNTER 04/05/2019 FLORY SCHUSTER JORDAN Yepez Ot W57.XXX A BIT/STUNG BY NONVENOM INSECT OTH NONVE 04/05/2019 JORDAN RUTH DO Ot Z80.0 FAMILY HISTORY OF MALIGNANT NEOPLASM OF 04/05/2019 JORDAN RUTH DO Ot Z82.49 FAMILY HX OF ISCHEM HEART DIS AND OTH DI Procedures There is no data. Results Test Result Range Blood lactic acid measurement (moles/vol ume) - 11/22/17 14:58 Blood lactic acid measurement (moles/volume) 0.53 mmol/L 0.50-2.00 Comprehensive metabolic panel - 11/22/17 14:58 Serum or plasma sodium measurement (moles/volume) 122 mmol/L 135-145 Serum or plasma potassium measurement (moles/volume) 3.4 mmol/L 3.6-5.0 Serum or plasma chloride measurement (moles/volume) 91 mmol/L 98-107 Carbon dioxide 20 mmol/L 21-32 Serum or plasma anion gap determination (moles/volume) 11 mmol/L 5-14 Serum or plasma urea nitrogen measurement (mass/volume ) 7 mg/dL 7-18 Serum or plasma creatinine measurement (mass/volume) 0.71 mg/dL 0.60-1.30 Serum or plasma urea nitrogen/creatinine mass ratio 10 NRG Serum or plasma creatinine measurement w ith calculation of estimated glomerular filtration rate > NRG Serum or plasma glucose measurement (mass/volume) 108 mg/dL 70-105 Serum or plasma calcium measurement (mass/volume) 8.6 mg/dL 8.5-10.1 Serum or plasma total bilirubin measurement (mass/volu me) 0.3 mg/dL 0.1-1.0 Serum or plasma alkaline phosphatase tracey surement (enzymatic activity/volume) 70 U/L 40-136 Serum or plasma aspartate aminotransfera se measurement (enzymatic activity/volume) 18 U/L 5-34 Serum or plasma alanine aminotransferase measurement (enzymatic activity/volume) 13 U/L 0-55 Serum or plasma protein measurement (mass/volume) 6.9 g/dL 6.4-8.2 Serum or plasma albumin measurement (mass/volume) 3.8 g/dL 3.2-4.5 Complete blood count (CBC) with automate d white blood cell (WBC) differential - 11/22/17 14:58 Blood leukocytes automated count (number/volume) 9.6 10*3/uL 4.3-11.0 Blood erythrocytes automated count (number/volume) 3.85 10*6/uL 4.35-5.85 Venous blood hemoglobin measurement (mass/volume) 13.1 g/dL 13.3-17.7 Blood hematocrit (volume fraction) 35 % 40-54 Automated erythrocyte mean corpuscular volume 91 [ foz_us] 80-99 Automated erythrocyte mean corpuscular h emoglobin (mass per erythrocyte) 34 pg 25-34 Automated erythrocyte mean corpuscular h emoglobin concentration measurement (mass/volume) 37 g/dL 32-36 Automated erythrocyte distribution width ratio 11. 0 % 10.0- 14.5 Automated blood platelet count [...] 10*3 1.0-4.0 Blood monocytes automated count (number/volume) 1. 2 10*3 0.0-1.0 Automated eosinophil count 0.0 10*3/uL 0 .0-0.3 Automated blood basophil count (count/volume) 0.0 10*3/uL 0.0-0.1 Bacterial blood culture - 11/22/17 14:58 Bacterial blood culture NG NRG Influenza virus A and B antigen detectio n - 11/22/17 15:04 FLU RESULT NEGATIVE FOR INFLUENZA A AND B ANTIGENS BY IA NRG Bacterial blood culture - 11/22/17 15:10 Bacterial blood culture NG NRG Sputum Gram stain - 11/22/17 19:48 GRAM STAIN SPUTUM INTERPRET WITH CAUTION NRG Bacterial sputum culture - 11/22/17 19:4 8 Bacterial sputum culture NORMAL NRG Complete blood count (CBC) with automate d white blood cell (WBC) differential - 11/23/17 06:02 Blood leukocytes automated count (number/volume) 7.6 10*3/uL 4.3-11.0 Blood erythrocytes automated count (number/volume) 3.97 10*6/uL 4.35-5.85 Venous blood hemoglobin measurement (mass/volume) 13.3 g/dL 13.3-17.7 Blood hematocrit (volume fraction) 37 % 40-54 Automated erythrocyte mean corpuscular volume 92 [ foz_us] 80-99 Automated erythrocyte mean corpuscular h emoglobin (mass per erythrocyte) 34 pg 25-34 Automated erythrocyte mean corpuscular h emoglobin concentration measurement (mass/volume) 36 g/dL 32-36 Automated erythrocyte distribution width ratio 11. 3 % 10.0- 14.5 Automated blood platelet count [...] 10*3 1.0-4.0 Blood monocytes automated count (number/volume) 1. 1 10*3 0.0-1.0 Automated eosinophil count 0.0 10*3/uL 0 .0-0.3 Automated blood basophil count (count/volume) 0.0 10*3/uL 0.0-0.1 Comprehensive metabolic panel - 11/23/17 06:02 Serum or plasma sodium measurement (moles/volume) 129 mmol/L 135-145 Serum or plasma potassium measurement (moles/volume) 4.5 mmol/L 3.6-5.0 Serum or plasma chloride measurement (moles/volume) 102 mmol/L 98-107 Carbon dioxide 19 mmol/L 21-32 Serum or plasma anion gap determination (moles/volume) 8 mmol/L 5-14 Serum or plasma urea nitrogen measurement (mass/volume ) 6 mg/dL 7-18 Serum or plasma creatinine measurement (mass/volume) 0.67 mg/dL 0.60-1.30 Serum or plasma urea nitrogen/creatinine mass ratio 9 NRG Serum or plasma creatinine measurement w ith calculation of estimated glomerular filtration rate > NRG Serum or plasma glucose measurement (mass/volume) 97 mg/dL 70-105 Serum or plasma calcium measurement (mass/volume) 8.4 mg/dL 8.5-10.1 Serum or plasma total bilirubin measurement (mass/volu me) 0.2 mg/dL 0.1-1.0 Serum or plasma alkaline phosphatase tracey surement (enzymatic activity/volume) 69 U/L 40-136 Serum or plasma aspartate aminotransfera se measurement (enzymatic activity/volume) 18 U/L 5-34 Serum or plasma alanine aminotransferase measurement (enzymatic activity/volume) 14 U/L 0-55 Serum or plasma protein measurement (mass/volume) 6.7 g/dL 6.4-8.2 Serum or plasma albumin measurement (mass/volume) 3.6 g/dL 3.2-4.5 Urine Legionella pneumophila antigen ass ay - 11/23/17 14:00 Urine Legionella pneumophila antigen assay Negativ e NRG Streptococcus pneumoniae antigen detecti on - 11/23/17 14:00 Streptococcus pneumoniae antigen detection Negativ e NRG C DIFFICILE AG + TOXIN A/B. - 11/23/17 1 5:05 RESULTS NEGATIVE FOR ANTIGEN AND TOXIN A/B NRG Complete blood count (CBC) with automate d white blood cell (WBC) differential - 11/24/17 05:50 Blood leukocytes automated count (number/volume) 7.2 10*3/uL 4.3-11.0 Blood erythrocytes automated count (number/volume) 3.61 10*6/uL 4.35-5.85 Venous blood hemoglobin measurement (mass/volume) 12.2 g/dL 13.3-17.7 Blood hematocrit (volume fraction) 33 % 40-54 Automated erythrocyte mean corpuscular volume 92 [ foz_us] 80-99 Automated erythrocyte mean corpuscular h emoglobin (mass per erythrocyte) 34 pg 25-34 Automated erythrocyte mean corpuscular h emoglobin concentration measurement (mass/volume) 37 g/dL 32-36 Automated erythrocyte distribution width ratio 11. 4 % 10.0- 14.5 Automated blood platelet count [...] 10*3 1.0-4.0 Blood monocytes automated count (number/volume) 1. 3 10*3 0.0-1.0 Automated eosinophil count 0.1 10*3/uL 0 .0-0.3 Automated blood basophil count (count/volume) 0.0 10*3/uL 0.0-0.1 Whole blood basic metabolic panel - 10/31 02/16 05:50 Serum or plasma sodium measurement (moles/volume) 126 mmol/L 135-145 Serum or plasma potassium measurement (moles/volume) 3.8 mmol/L 3.6-5.0 Serum or plasma chloride measurement (moles/volume) 99 mmol/L 98-107 Carbon dioxide 19 mmol/L 21-32 Serum or plasma anion gap determination (moles/volume) 8 mmol/L 5-14 Serum or plasma urea nitrogen measurement (mass/volume ) 4 mg/dL 7-18 Serum or plasma creatinine measurement (mass/volume) 0.63 mg/dL 0.60-1.30 Serum or plasma urea nitrogen/creatinine mass ratio 6 NRG Serum or plasma creatinine measurement w ith calculation of estimated glomerular filtration rate > NRG Serum or plasma glucose measurement (mass/volume) 104 mg/dL 70-105 Serum or plasma calcium measurement (mass/volume) 8.2 mg/dL 8.5-10.1 Complete blood count (CBC) with automate d white blood cell (WBC) differential - 03/08/20 10:17 Blood leukocytes automated count (number/volume) 6.5 10*3/uL 4.3-11.0 Blood erythrocytes automated count (number/volume) 4.03 10*6/uL 4.35-5.85 Venous blood hemoglobin measurement (mass/volume) 13.6 g/dL 13.3-17.7 Blood hematocrit (volume fraction) 37 % 40-54 Automated erythrocyte mean corpuscular volume 93 [ foz_us] 80-99 Automated erythrocyte mean corpuscular h emoglobin (mass per erythrocyte) 34 pg 25-34 Automated erythrocyte mean corpuscular h emoglobin concentration measurement (mass/volume) 36 g/dL 32-36 Automated erythrocyte distribution width ratio 11. 8 % 10.0- 14.5 Automated blood platelet count (count/volume) 223 10*3/uL 130-400 Automated blood platelet mean volume measurement 9.0 [foz_us] 7.4-10.4 Automated blood neutrophils/100 leukocytes 48 % 42-75 Automated blood lymphocytes/100 leukocytes 34 % 12-44 Blood monocytes/100 leukocytes 15 % 0-12 Automated blood eosinophils/100 leukocytes 3 % 0-10 Automated blood basophils/100 leukocytes 1 % 0-10 Blood neutrophils automated count (number/volume) 3.1 10*3 1.8-7.8 Blood lymphocytes automated count (number/volume) 2.2 10*3 1.0-4.0 Blood monocytes automated count (number/volume) 1. 0 10*3 0.0-1.0 Automated eosinophil count 0.2 10*3/uL 0 .0-0.3 Automated blood basophil count (count/volume) 0.1 10*3/uL 0.0-0.1 Comprehensive metabolic panel - 03/08/20 10:17 Serum or plasma sodium measurement (moles/volume) 132 mmol/L 135-145 Serum or plasma potassium measurement (moles/volume) 4.2 mmol/L 3.6-5.0 Serum or plasma chloride measurement (moles/volume) 100 mmol/L 98-107 Carbon dioxide 21 mmol/L 21-32 Serum or plasma anion gap determination (moles/volume) 11 mmol/L 5-14 Serum or plasma urea nitrogen measurement (mass/volume ) 7 mg/dL 7-18 Serum or plasma creatinine measurement (mass/volume) 0.83 mg/dL 0.60-1.30 Serum or plasma urea nitrogen/creatinine mass ratio 8 NRG Serum or plasma creatinine measurement w ith calculation of estimated glomerular filtration rate > NRG Serum or plasma glucose measurement (mass/volume) 87 mg/dL 70-105 Serum or plasma calcium measurement (mass/volume) 8.9 mg/dL 8.5-10.1 Serum or plasma total bilirubin measurement (mass/volu me) 0.4 mg/dL 0.1-1.0 Serum or plasma alkaline phosphatase tracey surement (enzymatic activity/volume) 87 U/L 40-136 Serum or plasma aspartate aminotransfera se measurement (enzymatic activity/volume) 36 U/L 5-34 Serum or plasma alanine aminotransferase measurement (enzymatic activity/volume) 30 U/L 0-55 Serum or plasma protein measurement (mass/volume) 7.5 g/dL 6.4-8.2 Serum or plasma albumin measurement (mass/volume) 4.4 g/dL 3.2-4.5 CALCIUM CORRECTED 8.6 mg/dL 8.5-10.1 PT panel in platelet poor plasma by coag ulation assay - 03/08/20 10:17 Prothrombin time (PT) in platelet poor plasma by coagu lation assay 14.0 s 12.2-14.7 INR in platelet poor plasma or blood by coagulation as say 1.0 0.8-1.4 Activated partial thromboplastin time (a PTT) in platelet poor plasma bycoagulation assay - 03/08/20 10:17 Activated partial thromboplastin time (a PTT) in platelet poor plasma bycoagulation assay 30 s 24-35 Fibrin D-dimer FEU measurement in platel et poor plasma (mass/volume) - 03/08/20 10:17 Fibrin D-dimer FEU measurement in platelet poor plasma (mass/volume) < ug/mL 0.00-0.49 Serum or plasma C reactive protein measu rement (mass/volume) - 03/08/20 10:17 Serum or plasma C reactive protein measurement (mass/v olume) 0.14 mg/dL 0.00-0.50 Magnesium - 03/08/20 10:17 Magnesium 1.2 mg/dL 1.6-2.4 Encounters ACCT No. Visit Date/Time Discharge Status Pt. Type Provider Facility Loc./Unit Complaint [id number] 04/01/2019 15:58:00 019 20:24:00 DIS Emergency ALBERT REYNA MD [facility] ER FACIAL SWELLING [id number] 04/01/2019 09:28:00 019 11:21:00 DIS Outpatient JORDAN RUTH DO, [facility] ER ALLERGIC REACTION [id number] 11/22/2017 15:45:00 018 14:00:00 DIS Inpatient NICOLE MARQUEZ, DEBBY Dean [facility] 4TH PNEUMONIA,HYPONATREMIA, HYPOKALEMIA [id number] 10/14/2016 12:45:00 017 14:52:00 DIS Emergency IBRAHIMA RIVERA [facility] ER R HAMSTRING INJ, RAPID SWELLING/BRUISING [id number] 10/10/2016 07:45:00 017 08:55:00 DIS Emergency ALBERT REYNA MD [facility] ER RIGHT LEG PAIN [id number] 05/10/2013 09:29:00 013 23:59:59 CLS Outpatient MARILOU LAWRENCE MD [facility] CARD SHLDR RC TEAR [id number] 03/08/2020 10:29:00 Document Registration
--- NOTE | 2020-03-08 10:58 | NUR ---
PT NOW STATES HE WOKE UP AT 0330 THIS AM WITH PAIN AND HOTNESS IN HIS LEFT ARM AND THEN STARTED HAVING THE CHEST PAIN. PT THEN WENT TO WORK AND BECAME DIZZY ON THE JOB SITE.
[2020-03-08 11:00] VITALS: BP 134/86
--- NOTE | 2020-03-08 11:07 | NUR ---
WHILE GIVING HIM THE MORPHINE PT NOW STATES HE STARTED HAVING CHEST PAIN THAT RADIATED TO BACK AND INTO RIGHT UPPER ABD FOR A WEEK. NOTIFIED.
--- NOTE | 2020-03-08 11:12 | NUR ---
PT STATES THE MORPHINE HAS NOT CHANGED HIS PAIN LEVEL.
[2020-03-08] MEDS ORDERED: FAMOTIDINE 20MG/2ML IV (PEPCID) IV STA (11:26)
[2020-03-08 11:30] VITALS: BP 127/77
[2020-03-08] MEDS ORDERED: ANTACID SUSP 30 ML UDC (MYLANTA) PO ONE (11:30)
[2020-03-08] MEDS ORDERED: LIDOCAINE 2% VISCOUS 15 ML UDC PO ONE (11:30)
--- NOTE | 2020-03-08 11:36 | ED Chest Pain ---
General Chief Complaint: Chest Pain Stated Complaint: CHEST PAIN,SOA Nursing Triage Note: ARRIVED VIA AMB TO [facility] ER WITH COMPLAINTS OF WAKING UP THIS AM WITH CHEST PAIN. Nursing Sepsis Screen: No Definite Risk Source: patient Exam Limitations: no limitations History of Present Illness Date Seen by Provider: Mar 08, 2020 Time Seen by Provider: 10:27 Initial Comments Here with report of chest pain that woke him up this morning but has been fairly persistent over the last week. States that it radiates to his back. Also associated with right arm pain. Denies fevers, chills, nausea, vomiting or weakness. Does admit to smoking and drinking up to 3 beers nightly. States the pain is burning that starts epigastric and moved of his chest into his back. This is the pain he is currently having. Denies any significant COVID 19 exposure. He lives with his who works at a correction so they have both been self isolating other than work sites and home. Timing/Duration: 1 week, getting worse, changing over time Severity/Quality: moderate, burning Location: central Radiation: arms (Right), back Prior CP/Workup: no prior chest pain, no prior cardiac workup ASA po HYDRATE THICKENER OPERATOR: No NTG SL HYDRATE THICKENER OPERATOR: No Associated Symptoms: abdominal pain (Epigastric), back pain; No diaphoresis, No dizziness, No edema, No fever/chills; heartburn; No nausea/vomiting, No shortness of breath, No weakness Allergies and Home Medications Allergies Coded Allergies: No Known Drug Allergies (Unverified , 10/10/16) Home Medications Ibuprofen 800 Mg Tablet, 800 MG PO Q8H PRN for HEADACHE, (Reported) Metoprolol Tartrate 100 Mg Tablet, 100 MG PO DAILY, (Reported) Omeprazole 20 Mg Capsule.dr, 20 MG PO DAILY, (Reported) Prednisone 10 Mg Tab, 40 MG PO DAILY Prescribed by: JORDAN RUTH on 04/01/19 1037 Patient Home Medication List Home Medication List Reviewed: Yes Review of Systems Review of Systems Constitutional: see HPI; No chills, No fever Respiratory: Denies Cough, Denies Shortness of Air Cardiovascular: Chest Pain; Denies Edema, Denies Lightheadedness Gastrointestinal: Abdominal Pain; Denies Diarrhea, Denies Nausea, Denies Vomiting Genitourinary: No Symptoms Reported Musculoskeletal: see HPI, back pain; No joint pain Skin: no symptoms reported Psychiatric/Neurological: No Symptoms Reported All Other Systems Reviewed Negative Unless Noted: Yes Past Zrmcbsu-Rewnsl-Wrgarq Hx Past Med/Social Hx: Reviewed Nursing Past Med/Soc Hx Patient Social History Alcohol Use: Occasionally Uses Alcohol Beverage of Choice: Beer Recreational Drug Use: No Smoking Status: Current Everyday Smoker Type Used: Cigarettes 2nd Hand Smoke Exposure: Yes Recent Foreign Travel: No Contact w/Someone Who Travel: No Recent Infectious Disease Expo: No Recent Hopitalizations: No Immunizations Up To Date PED Vaccines UTD: Yes Seasonal Allergies Seasonal Allergies: No Past Medical History Surgeries: Yes Orthopedic Respiratory: Yes (SUSPECTED COPD) Sleep Apnea Currently Using CPAP: No Currently Using BIPAP: No Cardiac: Yes Hypertension Neurological: No HIV/AIDS: No Genitourinary: No Gastrointestinal: Yes Gastroesophageal Reflux, Hemorrhoids Musculoskeletal: Yes (JOINTS HURT;MULTIPLE BILATERAL SHOULDER SURGERIES) Arthritis Endocrine: No HEENT: No Loss of Vision: Denies Hearing Impairment: Denies Cancer: No Psychosocial: No Integumentary: No Blood Disorders: No Family Medical History Reviewed Nursing Family Hx [place]'s disease Arthritis 19 FATHER 19 MOTHER Asthma G8 BROTHER Colon cancer 19 FATHER Hypercholesterolemia 19 FATHER Hypertension 19 FATHER Myocardial infarction 19 FATHER Thyroid disease G8 SISTER Heart Disease, Cancer, Hypertension Physical Exam Vital Signs Vital Signs - First Documented 03/08/20 10:04 Temp 36.3 Pulse 72 Resp 16 B/P (MAP) 158/74 (102) Pulse Ox 97 O2 Delivery Room Air Capillary Refill : Less Than 3 Seconds Height, Weight, BMI Height: 5'5.00" Weight: 148lbs. 5.0oz. 67.389247ed; 24.00 BMI Method:Stated General Appearance: No Apparent Distress, WD/WN HEENT: PERRL/EOMI, Pharynx Normal Neck: Non Tender, Supple Respiratory: Lungs Clear, Normal Breath Sounds Cardiovascular: Regular Rate, Rhythm, No Murmur Gastrointestinal: Soft, Tenderness (Epigastric and left upper quadrant with greatest pain noted in the epigastric region.) Extremity: Normal Range of Motion, Non Tender Neurologic/Psychiatric: Alert, Oriented x3 Skin: Normal Color, Warm/Dry Progress/Results/Core Measures Results/Orders Lab Results Laboratory Tests Test 03/08/20 10:17 Range/Units White Blood Count 6.5 4.3-11.0 10^3/uL Red Blood Count 4.03 L 4.35-5.85 10^6/uL Hemoglobin 13.6 13.3-17.7 G/DL Hematocrit 37 L 40-54 % Mean Corpuscular Volume 93 80-99 FL Mean Corpuscular Hemoglobin 34 25-34 PG Mean Corpuscular Hemoglobin Concent 36 32-36 G/DL Red Cell Distribution Width 11.8 10.0-14.5 % Platelet Count 223 130-400 10^3/uL Mean Platelet Volume 9.0 7.4-10.4 FL Neutrophils (%) (Auto) 48 42-75 % Lymphocytes (%) (Auto) 34 12-44 % Monocytes (%) (Auto) 15 H 0-12 % Eosinophils (%) (Auto) 3 0-10 % Basophils (%) (Auto) 1 0-10 % Neutrophils # (Auto) 3.1 1.8-7.8 X 10^3 Lymphocytes # (Auto) 2.2 1.0-4.0 X 10^3 Monocytes # (Auto) 1.0 0.0-1.0 X 10^3 Eosinophils # (Auto) 0.2 0.0-0.3 10^3/uL Basophils # (Auto) 0.1 0.0-0.1 10^3/uL Erythrocyte Sedimentation Rate 7 0-30 MM/HR Prothrombin Time 14.0 12.2-14.7 SEC INR Comment 1.0 0.8-1.4 Activated Partial Thromboplast Time 30 24-35 SEC D-Dimer < 0.27 0.00-0.49 UG/ML Sodium Level 132 L 135-145 MMOL/L Potassium Level 4.2 3.6-5.0 MMOL/L Chloride Level 100 98-107 MMOL/L Carbon Dioxide Level 21 21-32 MMOL/L Anion Gap 11 5-14 MMOL/L Blood Urea Nitrogen 7 7-18 MG/DL Creatinine 0.83 0.60-1.30 MG/DL Estimat Glomerular Filtration Rate > 60 BUN/Creatinine Ratio 8 Glucose Level 87 70-105 MG/DL Calcium Level 8.9 8.5-10.1 MG/DL Corrected Calcium 8.6 8.5-10.1 MG/DL Magnesium Level 1.2 L 1.6-2.4 MG/DL Total Bilirubin 0.4 0.1-1.0 MG/DL Aspartate Amino Transf (AST/SGOT) 36 H 5-34 U/L Alanine Aminotransferase (ALT/SGPT) 30 0-55 U/L Alkaline Phosphatase 87 40-136 U/L Myoglobin 40.9 10.0-92.0 NG/ML Troponin I < 0.028 <0.028 NG/ML C-Reactive Protein High Sensitivity 0.14 0.00-0.50 MG/DL Total Protein 7.5 6.4-8.2 GM/DL Albumin 4.4 3.2-4.5 GM/DL Lipase 38 8-78 U/L My Orders Orders - ALBERT REYNA MD Cbc With Automated Diff (03/08/20 10:21) Magnesium (03/08/20 10:21) Chest 1 View, Ap/Pa Only (03/08/20:) Ekg Tracing (03/08/20 10:) Comprehensive Metabolic Panel (03/08/20 10:) Myoglobin Serum (03/08/20 10:) Protime With Inr (03/08/20 10:) Partial Thromboplastin Time (03/08/20 10:) Monitor-Rhythm Ecg Trace Only (03/08/20 10:) Lipid Panel (03/09/20 06:00) Ed Iv/Invasive Line Start (03/08/20 10:) Troponin I (03/08/20 10:) Nitroglycerin 0.4 Mg Btl 25's (Nitrostat (03/08/20 10:30) Aspirin Chewable Tablet (Baby Aspirin Ch (03/08/20 10:30) Morphine Injection (Morphine Injection (03/08/20 10:26) Fibrin Degradation Products (03/08/20 10:26) Hs C Reactive Protein (03/08/20 10:26) Erythrocyte Sedimentation Rate (03/08/20 10:26) Lipase (03/08/20 11:26) Lidocaine 2% Viscous 15 Ml (Xylocaine Vi (03/08/20 11:30) Antacid Suspension (Mylanta Suspension (03/08/20 11:30) Famotidine Injection (Pepcid Injection) (03/08/20 11:26) Sucralfate Tablet (Carafate Tablet) (03/08/20 12:00) Magnesium 1 Gm/100 Ml Ivpb (Magnesium Walker (03/08/20 12:15) Medications Given in ED Current Medications Medications Dose Ordered Sig/Mackenzie Route Start Time Stop Time Status Last Admin Dose Admin Al Hydrox/Mg Hydrox/Simethicone 30 ml ONCE ONCE PO 03/08/20 11:30 03/08/20 11:31 DC 03/08/20 11:32 30 ML Aspirin 324 mg ONCE ONCE PO 03/08/20 10:30 03/08/20 10:31 DC 03/08/20 10:32 324 MG Lidocaine HCl 15 ml ONCE ONCE PO 03/08/20 11:30 03/08/20 11:31 DC 03/08/20 11:32 15 ML Magnesium Sulfate/ Dextrose 100 ml @ 100 mls/hr ONCE ONCE IV 03/08/20 12:15 03/08/20 13:14 03/08/20 12:09 100 MLS/HR Nitroglycerin 0.4 mg UD PRN SL 03/08/20 10:30 03/08/20 10:40 0.4 MG Sucralfate 1 gm ONCE ONCE PO 03/08/20 12:00 03/08/20 12:01 DC 03/08/20 12:03 1 GM Vital Signs/I&O 03/08/20 10:04 Temp 36.3 Pulse 72 Resp 16 B/P (MAP) 158/74 (102) Pulse Ox 97 O2 Delivery Room Air Blood Pressure Mean: 102 Progress Progress Note : Progress Note Seen and evaluated. IV, labs, EKG and chest x-ray ordered. ASA 324 mg by mouth, nitroglycerin sublingual and morphine 2 mg IV ordered. Monitor patient. Patient reported that he had the pain going on for a longer time and seems to be more epigastric so we have added a GI cocktail, Pepcid 20 mg IV and lipase. Patient does have history of alcohol use as well as smoking which points more towards epigastric Pancreas as an issue so we will see through evaluation. Monitor patient. 1223: Patient doing better. I discussed the case with Dr. Dunn. He will see him in office as soon as possible. I did discuss with the patient regarding smoking cessation and decreasing alcohol. We will add Pepcid twice daily to his omeprazole daily dosing as well as adding Carafate. Discharged home with return precautions. Patient verbalize understanding of instructions and agreement with plan. Patient did get 1 g of magnesium IV and he does have magnesium supplements at home and will restart taking those. Initial ECG Impression Date: Mar 08, 2020 Initial ECG Impression Time: 10:03 Initial ECG Rate: 68 Initial ECG Rhythm: Normal Sinus Comment Sinus rhythm with leftward axis. No evidence of ST elevation MS. Overall similar appearance to 05/10/13. Interpreted by me. Diagnostic Imaging Diagonstic Imaging: Xray Plain Films/CT/US/NM/MRI: chest Comments [facility]. [place], [place] NAME: SONDRA TAYLOR [facility] REC#: [id number] PT STATUS: REG ER : 1960 PHYSICIAN: ALBERT REYNA MD ADMIT DATE: 03/08/20/ER Draft Date of Exam:03/08/20 CHEST 1 VIEW, AP/PA ONLY EXAMINATION: Chest, single frontal view. INDICATION: Chest pain and dizziness. COMPARISON: Multiple priors, most recent performed on 11/22/2017. FINDINGS: Previously demonstrated hazy opacity in the left lung has resolved. The lungs are clear and the pulmonary vasculature is normal. No pneumothorax or large pleural effusion. Heart size and mediastinal contours are normal and unchanged. No acute osseous abnormality is appreciated. IMPRESSION: No radiographic evidence of acute chest disease. Dictated on workstation # [id number] Dict: 03/08/20 1129 Trans: 03/08/20 1133 [id number] Interpreted by: VIKTOR SOLOMON DO Electronically signed by: Departure Impression Primary Impression: Chest pain Qualified Codes: R07.9 - Chest pain, unspecified Additional Impressions: Gastroesophageal reflux disease Qualified Codes: K21.9 - Gastro-esophageal reflux disease without esophagitis Hypomagnesemia Disposition: 01 HOME, SELF-CARE Condition: Improved Departure-Patient Inst. Decision time for Depature: 12:19 Referrals: BESSIE THOMPSON (PCP) Primary Care Physician MAYITO DUNN DO Patient Instructions: Chest Pain (DC), Acid Reflux (Gastroesophageal Reflux Disease), Adult (DC), Low Magnesium Level (DC) Add. Discharge Instructions: All discharge instructions reviewed with patient and/or family. Voiced understanding. Continue your omeprazole as previously prescribed. You should add Pepcid or the generic famotidine 20 mg twice daily for the next 7 days and then daily thereafter as needed to decrease stomach upset. Take other medications as directed. Restart your magnesium supplements as previously prescribed. Call and make an appointment with Dr. Dunn for appointment as soon as possible. Return for worse pain, fever, vomiting, breathing problems, weakness or other concerns as needed. Drink plenty of fluids. You should consider quitting smoking and decreasing intake of alcohol. Scripts Sucralfate (Sucralfate) 1 Gm Tablet 1 GM PO ACHS, #56 TAB 1 Refill Chew tablet to a slurry and then swallow Prov: ALBERT REYNA MD 03/08/20 Copy Copies To 1: MAYITO DUNN DO ALBERT REYNA MD Mar 08, 2020 11:36
--- NOTE | 2020-03-08 11:51 | NUR ---
IN TALKING TO PT. PT STILL REPORTS PAIN AFTER THE GI COCKTAIL.
[2020-03-08 12:00] VITALS: BP 161/96
[2020-03-08] MEDS ORDERED: SUCRALFATE 1 GM (CARAFATE) TAB PO ONE (12:00)
[2020-03-08] MEDS ORDERED: MAGNESIUM 1 GM/100 ML IVPB 100 ML IV ONE (12:15)
[2020-03-08] MEDS ORDERED: SUCR1TAB PO (12:22)
[2020-03-08 12:40] VITALS: BP 153/75
== END 2020-03-08 12:40 | disposition home or self-care (01) ==
LOC: EDUNIT# 10:04 → ER 10:05
DX: K21.9 Gastro-esophageal reflux disease without esophagitis (principal); E83.42 Hypomagnesemia; I10 Essential (primary) hypertension; F17.210 Nicotine dependence, cigarettes, uncomplicated; Z80.0 Family history of malignant neoplasm of digestive organs; Z82.49 Family history of ischemic heart disease and other diseases of the circulatory system; Z79.52 Long term (current) use of systemic steroids
CPT/HCPCS: 36415; 71045; 80053; 83690; 83735; 83874; 84484; 85025; 85379; 85610; 85652; 85730; 86141; 93005; 93041

== ENCOUNTER 2020-03-21 05:32 | Outpatient (RCR) | payer BC ==
[~2020-03-21] VITALS: Ht 165 cm; Wt 68.0 kg
[~2020-03-21 05:32] MED LIST changes: +SUCR1TAB PO
[2020-03-24] MEDS ORDERED: PANT40TA2 PO (15:11)
== END 2020-03-21 13:23 | disposition home or self-care (01) ==
LOC: PREOP 05:32
PROVIDERS: ATTEND Surgery
DX: Z01.818 Encounter for other preprocedural examination (principal); K21.9 Gastro-esophageal reflux disease without esophagitis; Z20.828 Contact with and (suspected) exposure to other viral communicable diseases
CPT/HCPCS: 87635

== ENCOUNTER 2020-03-24 12:38 | Day surgery (SDC) | payer BC ==
[~2020-03-24] VITALS: Ht 165 cm; Wt 68.0 kg
[2020-03-24] MEDS ORDERED: LACTATED RINGERS 1,000 ML IV STA (12:41)
[2020-03-24] MEDS ORDERED: HURRICAINE EXT TUBE (BENZOCAINE) XX PRN (12:45)
[2020-03-24] MEDS ORDERED: LACTATED RINGERS 1,000 ML IV ONE (12:46)
[2020-03-24 12:50] VITALS: BP 127/68
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
[2020-03-24] MEDS ORDERED: MIDAZOLAM 2 MG/2 ML (VERSED) VIAL ONE (13:56)
[2020-03-24] MEDS ORDERED: proPOfol 200 MG/20 ML (DIPRIVAN) VIAL IV ONE (13:56)
--- NOTE | 2020-03-24 14:15 | Progress Note-Pre Operative ---
Pre-Operative Progress Note H&P Reviewed The H&P was reviewed, patient examined and no changes noted. Date Seen by Provider: Mar 24, 2020 Time Seen by Provider: 14:14 Date H&P Reviewed: Mar 24, 2020 Time H&P Reviewed: 14:15 Pre-Operative Diagnosis: GERD MAYITO DUNN DO Mar 24, 2020 14:15
[2020-03-24] MEDS ORDERED: HURRICAINE EXT TUBE (BENZOCAINE) ONE (14:29)
[2020-03-24 14:30] VITALS: BP 108/57
[2020-03-24 14:35] VITALS: BP 111/64
[2020-03-24 14:40] VITALS: BP 111/64
[2020-03-24 15:06] VITALS: BP 125/65
--- NOTE | 2020-03-24 15:06 | Progress Note-Post Operative ---
Post-Operative Progess Note Surgeon (s)/Advertising Operations Manager (s) Surgeon MAYITO DUNN DO Advertising Operations Manager: na Pre-Operative Diagnosis GERD Post-Operative Diagnosis gastritis Procedure & Operative Findings Date of Procedure 03/24/20 Procedure Performed/Findings egd c biopsies Anesthesia Type per [facility] Estimated Blood Loss Estimated blood loss (mL): none Specimens/Packing Specimens Removed antrum, body, ge MAYITO DUNN DO Mar 24, 2020 15:05
[2020-03-24 15:07] VITALS: BP 125/65
[2020-03-24] MEDS ORDERED: PANT40TA2 PO (15:11)
--- NOTE | 2020-03-24 15:11 | Discharge Inst-Simple/Standard ---
Discharge Inst-Standard Discharge Medications New, Converted or Re-Newed RX: Transmitted to Pharmacy Patient Instructions/Follow Up Plan of Care/Instructions/FU: 3 weeks Mary Activity as Tolerated: Yes Discharge Diet: Regular Diet MAYITO DUNN DO Mar 24, 2020 15:11
--- NOTE | 2020-03-24 15:46 | Anesthesia-General Post-Op ---
MAC Patient Condition Mental Status/LOC: Same as Preop Cardiovascular: Satisfactory Nausea/Vomiting: Absent Respiratory: Satisfactory Pain: Controlled Complications: Absent Post Op Complications Complications None Follow Up Care/Instructions Patient Instructions None needed. Anesthesiology Discharge Order Discharge Order Patient was seen after the procedure and he was doing well, no complaints, stable vital signs, no apparent adverse anesthesia problems. LISA MAURICE DO Mar 24, 2020 15:46
--- NOTE | 2020-03-25 01:57 | OPERATIVE REPORT ---
DATE OF SERVICE: 03/24/2020 PREOPERATIVE DIAGNOSIS: Gastroesophageal reflux disease. POSTOPERATIVE DIAGNOSIS: Gastritis. PROCEDURE: EGD with biopsy. SURGEON: Mayito Hernandez DO ANESTHESIA: Per MDA. ESTIMATED BLOOD LOSS: None. COMPLICATIONS: None. INDICATIONS: The patient is a 60-year-old male with GERD symptoms. He understands risks and benefits of procedure and wished to proceed with procedure. Consent was signed in the chart. DESCRIPTION OF PROCEDURE: The patient was taken to the endoscopy suite, placed in left lateral recumbent position. Timeout was performed. Scope was inserted in mouth, down the esophagus, stomach and into the duodenum without difficulty. There were no polyps, masses or ulcerations within the duodenum. Scope was then slowly retracted back into the stomach where it was further insufflated. Biopsy of the antrum was obtained. Scope was retroflexed and changes of gastritis appeared throughout the entire stomach. No hiatal hernia. Scope was returned to its normal position. Biopsies of the antrum and body were obtained. Scope was then slowly retracted back. There were no polyps, masses or ulcerations. In the distal esophagus, biopsy of the GE junction was obtained. Scope was then slowly retracted back until completely removed. The patient tolerated procedure well without any complications. RECOMMENDATIONS: We will stop his omeprazole and change to Protonix 40 mg daily. We will follow up on biopsies and see how his symptoms are doing in approximately 3 weeks. Job ID: [id number] DocumentID: [id number] Dictated Date: 03/24/2020 15:14:08 Certified Ophthalmic Technologist Date: 03/25/2020 01:56:32 Dictated By: MAYITO HERNANDEZ DO
== END 2020-03-24 15:21 | disposition home or self-care (01) ==
LOC: ENDO 12:38
PROVIDERS: ATTEND Surgery
DX: K21.0 Gastro-esophageal reflux disease with esophagitis (principal); K29.70 Gastritis, unspecified, without bleeding; I10 Essential (primary) hypertension; G47.33 Obstructive sleep apnea (adult) (pediatric); F17.210 Nicotine dependence, cigarettes, uncomplicated; M06.9 Rheumatoid arthritis, unspecified; Z79.899 Other long term (current) drug therapy
CPT/HCPCS: 88305

== ENCOUNTER → 2021-06-05 | Outpatient (REF) ==
[~2021-06-05] MED LIST changes: +PANT40TA2 PO
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
== END ==
LOC: OCC 09:01
PROVIDERS: ATTEND Family Medicine
DX: S00.83XA Contusion of other part of head, initial encounter (principal); X58.XXXA Exposure to other specified factors, initial encounter
CPT/HCPCS: 70250; 72040

== ENCOUNTER 2022-07-27 13:10 | Emergency (ER) | payer BC ==
[~2022-07-27] VITALS: Ht 165.1 cm; Wt 68.0 kg
[~2022-07-27 13:10] MED LIST changes: +CYCL10TA25 PO; -CYCL10TA9 PO
[2022-07-27] MEDS ORDERED: LIDOCAINE 2% VISCOUS 15 ML UDC PO ONE (14:00)
[2022-07-27] MEDS ORDERED: ONDANSETRON 4 MG/2 ML (SDV) Z0FRAN IVP ONE (14:00)
[2022-07-27] MEDS ORDERED: ANTACID SUSP 30 ML UDC (MYLANTA) PO ONE (14:00)
--- NOTE | 2022-07-27 14:02 | ED Chest Pain ---
General Chief Complaint: Chest Pain Stated Complaint: HEADACHE/CHEST PAIN Nursing Triage Note: PT ABULATE TO TRIAGE WITH C/O CHEST PAIN X1 WEEK AND HEADACHE X2 WEEKS. PT REPORTS BEING SEEN AT [facility] TODAY AND TOLD TO COME TO ED. Source: patient, old records Exam Limitations: no limitations History of Present Illness Date Seen by Provider: Jul 27, 2022 Time Seen by Provider: 13:40 Initial Comments This 62-year-old gentleman presents to the emergency room with complaints of chest pain and headache. He was referred to the ER by [facility]. He reports the chest pain is in the inferior sternal region and has been constant for about 1 week. He rates the pain about 6/10. He identifies no exacerbating or alleviating factors. He additionally has upper abdominal pain primarily in the epigastrium and right upper quadrant. This area is tender to palpation. He has nausea in the mornings but denies any other symptoms such as fever, cough, shortness of air, vomiting, or diarrhea. His headache has been present for about 2 weeks at his cause to it. The headache bothers him more than the chest pain. He does not typically have headaches of this nature. He has no known coronary artery disease. He does have GERD. He had EGD performed in 2019 demonstrating gastritis. The biopsy showed esophagitis. He smokes tobacco and drinks daily. He typically drinks 2-3 beers daily. His last alcohol consumption was yesterday. He denies any drug use. His primary care provider is Elise Santillan at the [facility]. Allergies and Home Medications Allergies Coded Allergies: No Known Drug Allergies (Unverified , 03/17/20) Patient Home Medication List Home Medication List Reviewed: Yes Ibuprofen (Ibuprofen) 800 Mg Tablet, 800 MG PO Q8H PRN for HEADACHE, (Reported) Entered as Reported by: ROSA BOTELLO on 11/23/17 1338 Metoprolol Tartrate (Metoprolol Tartrate) 100 Mg Tablet, 100 MG PO DAILY, (Reported) Entered as Reported by: ROSA BOTELLO on 11/23/17 1338 Pantoprazole Sodium (Protonix) 40 Mg Tablet.dr, 40 MG PO DAILY Prescribed by: MAYITO DUNN on 03/24/20 1511 Review of Systems Review of Systems Constitutional: no symptoms reported EENTM: No Symptoms Reported Respiratory: No Symptoms Reported Cardiovascular: See HPI Gastrointestinal: See HPI Genitourinary: No Symptoms Reported Musculoskeletal: no symptoms reported Skin: no symptoms reported Psychiatric/Neurological: No Symptoms Reported Endocrine: No Symptoms Reported Hematologic/Lymphatic: No Symptoms Reported Past Hxvzyqu-Derlrr-Zmaxlx Hx Patient Social History Tobacco Use?: Yes Tobacco type used: Cigarettes Smoking Status: Heavy Tobacco Smoker Use of E-Cig and/or Vaping dev: No Use of E-Cig and/or Vaping Aakash: Never a User Substance use?: No Alcohol Use?: Yes Alcohol type: Beer Alcohol Frequency: Daily Pt feels they are or have been: No Immunizations Up To Date PED Vaccines UTD: Yes COVID19 Vaccine Executive 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: MODERNA Seasonal Allergies Seasonal Allergies: No Past Medical History Surgeries: Yes (SHOULDER X6) Orthopedic Respiratory: Yes (SUSPECTED COPD) Sleep Apnea Currently Using CPAP: No Currently Using BIPAP: No Cardiac: Yes Hypertension Neurological: No Sexually Transmitted Disease: No HIV/AIDS: No Genitourinary: No Gastrointestinal: Yes Gastroesophageal Reflux, Hemorrhoids Musculoskeletal: Yes (JOINTS HURT;MULTIPLE BILATERAL SHOULDER SURGERIES) Arthritis Endocrine: No HEENT: Yes (GLASSES) Loss of Vision: Denies Hearing Impairment: Denies Cancer: No Psychosocial: No Integumentary: No Blood Disorders: No Adverse Reaction/Blood Tranf: No (N/A) Family Medical History [place]'s disease Arthritis 19 FATHER 19 MOTHER Asthma G8 BROTHER Colon cancer 19 FATHER Hypercholesterolemia 19 FATHER Hypertension 19 FATHER Myocardial infarction 19 FATHER Thyroid disease G8 SISTER Heart Disease, Cancer, Hypertension Physical Exam Vital Signs Vital Signs - First Documented 07/27/22 13:33 Temp 36.9 Pulse 68 Resp 16 B/P (MAP) 143/76 (98) O2 Delivery Room Air Capillary Refill : Less Than 3 Seconds Height, Weight, BMI Height: 5'5.00" Weight: 148lbs. 5.0oz. 67.412371ln; 24.00 BMI Method:Stated General Appearance: No Apparent Distress, WD/WN HEENT: PERRL/EOMI, Normal ENT Inspection Neck: Normal Inspection; No JVD Respiratory: Lungs Clear, Normal Breath Sounds, No Accessory Muscle Use, No Respiratory Distress, Other (Slight tenderness at the right anterior lower costal edge near the xiphoid) Cardiovascular: Regular Rate, Rhythm, No Edema, No Murmur Gastrointestinal: Normal Bowel Sounds, Soft; No Distended; Tenderness (Right upper quadrant and epigastric) Extremity: Normal Inspection, No Pedal Edema Neurologic/Psychiatric: Alert, Oriented x3, No Motor/Sensory Deficits, Normal Mood/Affect, slat pickler II-XII Norm as Tested Skin: Normal Color, Warm/Dry Progress/Results/Core Measures Results/Orders Lab Results Laboratory Tests Test 07/27/22 13:57 Range/Units White Blood Count 6.7 4.3-11.0 10^3/uL Red Blood Count 4.34 4.30-5.52 10^6/uL Hemoglobin 14.7 13.3-17.7 g/dL Hematocrit 40 40-54 % Mean Corpuscular Volume 92 80-99 fL Mean Corpuscular Hemoglobin 34 25-34 pg Mean Corpuscular Hemoglobin Concent 37 H 32-36 g/dL Red Cell Distribution Width 11.2 10.0-14.5 % Platelet Count 263 130-400 10^3/uL Mean Platelet Volume 8.9 L 9.0-12.2 fL Immature Granulocyte % (Auto) 0 % Neutrophils (%) (Auto) 54 42-75 % Lymphocytes (%) (Auto) 32 12-44 % Monocytes (%) (Auto) 12 0-12 % Eosinophils (%) (Auto) 1 0-10 % Basophils (%) (Auto) 1 0-10 % Neutrophils # (Auto) 3.6 1.8-7.8 10^3/uL Lymphocytes # (Auto) 2.1 1.0-4.0 10^3/uL Monocytes # (Auto) 0.8 0.0-1.0 10^3/uL Eosinophils # (Auto) 0.1 0.0-0.3 10^3/uL Basophils # (Auto) 0.1 0.0-0.1 10^3/uL Immature Granulocyte # (Auto) 0.0 0.0-0.1 10^3/uL Prothrombin Time 14.8 H 12.2-14.7 SEC INR Comment 1.1 0.8-1.4 Activated Partial Thromboplast Time 31 24-35 SEC Sodium Level 130 L 135-145 MMOL/L Potassium Level 4.4 3.6-5.0 MMOL/L Chloride Level 96 L 98-107 MMOL/L Carbon Dioxide Level 23 21-32 MMOL/L Anion Gap 11 5-14 MMOL/L Blood Urea Nitrogen 13 7-18 MG/DL Creatinine 0.81 0.60-1.30 MG/DL Estimat Glomerular Filtration Rate 100 BUN/Creatinine Ratio 16 Glucose Level 95 70-105 MG/DL Calcium Level 9.2 8.5-10.1 MG/DL Corrected Calcium 9.0 8.5-10.1 MG/DL Magnesium Level 1.3 L 1.6-2.4 MG/DL Total Bilirubin 0.4 0.1-1.0 MG/DL Aspartate Amino Transf (AST/SGOT) 17 5-34 U/L Alanine Aminotransferase (ALT/SGPT) 18 0-55 U/L Alkaline Phosphatase 70 40-136 U/L Myoglobin 37.2 10.0-92.0 NG/ML Troponin I < 0.028 <0.028 NG/ML C-Reactive Protein High Sensitivity 0.09 0.00-0.50 MG/DL Total Protein 7.1 6.4-8.2 GM/DL Albumin 4.3 3.2-4.5 GM/DL Lipase 29 8-78 U/L Serum Alcohol < 10 <10 MG/DL My Orders Orders - JOHN ESPITIA MD Cbc With Automated Diff (07/27/22 13:40) Magnesium (07/27/22 13:40) Chest 1 View, Ap/Pa Only (07/27/22 13:40) Ekg Tracing (07/27/22 13:40) Comprehensive Metabolic Panel (07/27/22 13:40) Myoglobin Serum (07/27/22 13:40) Protime With Inr (07/27/22 13:40) Partial Thromboplastin Time (07/27/22 13:40) O2 (07/27/22 13:40) Monitor-Rhythm Ecg Trace Only (07/27/22 13:40) Lipid Panel (07/28/22 06:00) Ed Iv/Invasive Line Start (07/27/22 13:40) Troponin I Aye (07/27/22 13:40) Lipase (07/27/22 13:54) Ondansetron Injection (Zofran Injectio (07/27/22 14:00) Lidocaine 2% Viscous 15 Ml (Xylocaine Vi (07/27/22 14:00) Antacid Suspension (Mylanta Suspension (07/27/22 14:00) Alcohol (07/27/22 14:20) Hs C Reactive Protein (07/27/22 14:20) Magnesium 1 Gm/100 Ml Ivpb (Magnesium Walker (07/27/22 15:00) Ct Dolly Chest/Noang Abd-Pelv W (07/27/22 14:50) Ct Head Wo (07/27/22 14:50) Iohexol Injection (Omnipaque 350 Mg/Ml 1 (07/27/22 15:00) Received Contrast (Hold Metformin- Contr (07/27/22 15:00) Ns (Ivpb) (Sodium Chloride 0.9% Ivpb Bag (07/27/22 15:00) Medications Given in ED Current Medications Medications Dose Ordered Sig/Mackenzie Route Start Time Stop Time Status Last Admin Dose Admin Al Hydrox/Mg Hydrox/Simethicone 30 ml ONCE ONCE PO 07/27/22 14:00 07/27/22 14:01 DC 07/27/22 14:05 30 ML Iohexol 100 ml ONCE ONCE IV 07/27/22 15:00 07/27/22 15:01 DC 07/27/22 14:55 80 ML Lidocaine HCl 15 ml ONCE ONCE PO 07/27/22 14:00 07/27/22 14:01 DC 07/27/22 14:05 15 ML Magnesium Sulfate/ Dextrose 100 ml @ 100 mls/hr ONCE ONCE IV 07/27/22 15:00 07/27/22 15:59 07/27/22 15:27 100 MLS/HR Ondansetron HCl 4 mg ONCE ONCE IVP 07/27/22 14:00 07/27/22 14:01 DC 07/27/22 14:05 4 MG Sodium Chloride 100 ml ONCE ONCE IV 07/27/22 15:00 07/27/22 15:01 DC 07/27/22 14:55 80 ML Vital Signs/I&O 07/27/22 13:33 Temp 36.9 Pulse 68 Resp 16 B/P (MAP) 143/76 (98) O2 Delivery Room Air Blood Pressure Mean: 98 Progress Progress Note : Time: 14:03 Progress Note Patient was interviewed and examined. He has some minor tenderness at the right lower anterior chest wall and in the right upper quadrant of the abdomen and epigastrium. Labs are pending. Zofran and GI cocktail are being administered as a trial treatment. Initial ECG Impression Date: Jul 27, 2022 Initial ECG Impression Time: 13:52 Initial ECG Rate: 67 Initial ECG Rhythm: Normal Sinus Initial ECG Intervals: Normal Initial ECG Impression: Normal Comment Normal sinus rhythm with no ST elevation or depression. No abnormal intervals or axis deviation. Diagnostic Imaging Diagonstic Imaging: CT Plain Films/CT/US/NM/MRI: head Comments CT head viewed by me and report reviewed. See report below: NAME: SONDRA TAYLOR [facility] REC#: [id number] PT STATUS: REG ER : 1960 PHYSICIAN: JOHN ESPITIA MD ADMIT DATE: 07/27/22/ER Draft Date of Exam:07/27/22 CT HEAD WO PROCEDURE: CT head without contrast. TECHNIQUE: Multiple contiguous axial images were obtained through the brain without the use of intravenous contrast. Auto Exposure Controls were utilized during the CT exam to meet ALARA standards for radiation dose reduction. INDICATION: Chest pain, abdominal pain. Headache. COMPARISON: None. FINDINGS: The ventricles and cortical sulci are age-appropriate. There is no midline shift or mass effect. No acute intracranial hemorrhage is seen. There is no CT evidence of acute territorial ischemia. The calvarium appears intact. Visualized paranasal sinuses are clear. IMPRESSION: No acute intracranial hemorrhage or CT evidence of acute territorial ischemia. Dictated on workstation # [id number] Dict: 07/27/22 1512 Trans: 07/27/22 1517 [facility] [phone] Interpreted by: LANCE DOYLE MD Diagonstic Imaging: CT Plain Films/CT/US/NM/MRI: chest, abdomen, pelvis Comments CT chest, abdomen and pelvis viewed by me and report reviewed. See report below: NAME: SONDRA TAYLOR [facility] REC#: [id number] PT STATUS: REG ER : 1960 PHYSICIAN: JOHN ESPITIA MD ADMIT DATE: 07/27/22/ER Draft Date of Exam:07/27/22 CT DOLLY CHEST/NOANG ABD-PELV W EXAMINATION: CT angiography of the chest, CT of the abdomen and pelvis. TECHNIQUE: Contrast enhanced thin section helical images were obtained through the chest, abdomen and pelvis with intravenous contrast timed for the optimal opacification of the arterial structures of the chest per CTA protocol. Post-processing, reconstructions and interpretation of angiographic images of the vessels was performed. 3D MIP reconstructions were performed and reviewed. All CT scans use one or more of the following dose optimizing techniques: automated exposure control, MA and/or KvP adjustment based on patient size and exam type or iterative reconstruction. HISTORY: Chest pain, abdominal pain. COMPARISON: 11/22/2017. FINDINGS: Vascular: No filling defect within the pulmonary arteries. Thoracic aorta is normal in caliber. Calcification of the aorta and coronary vessels. Thyroid: The thyroid is normal. Mediastinum: Heart size is normal without significant pericardial effusion. No suspicious lymphadenopathy. Lungs and airways: The lungs are clear without consolidation, pleural effusion or pneumothorax. The airways are normal. Solid organs: The liver is normal without focal lesion. The gallbladder is normal. There is no biliary ductal dilation. Pancreas is normal. Spleen is normal. Adrenal glands are normal. The kidneys are normal without hydronephrosis. Bowel: There is diffuse wall thickening of the stomach. A duodenal diverticulum is present. There is no bowel obstruction. The colon and appendix are normal. Peritoneum: There is no intraperitoneal free fluid or free air. No suspicious lymphadenopathy. Vasculature: Calcification of the aorta without aneurysm. Musculoskeletal: Degenerative changes of the spine without suspicious osseous lesion or compression fracture. Pelvis: The prostate gland is normal. The urinary bladder is normal. IMPRESSION: 1. No finding of pulmonary embolus. 2. No other acute abnormality in the chest, abdomen or pelvis. 3. Diffuse wall thickening of the stomach which could be seen with gastritis. Dictated on workstation # [id number] Dict: 07/27/22 1524 Trans: 07/27/22 1538 [facility] [phone] Interpreted by: RIK BENITEZ DO Departure Impression Primary Impression: Atypical chest pain Additional Impressions: Gastritis Qualified Codes: K29.20 - Alcoholic gastritis without bleeding Upper abdominal pain Hypomagnesemia Alcohol dependence Qualified Codes: F10.29 - Alcohol dependence with unspecified alcohol- induced disorder Essential (primary) hypertension Disposition: HOME, SELF-CARE Condition: Stable Departure-Patient Inst. Decision time for Depature: 15:58 Referrals: NO,LOCAL PHYSICIAN (PCP/Family) Primary Care Physician Patient Instructions: ALCOHOL AND SUBSTANCE ABUSE, Abdominal Pain, Adult ED, Chest Pain, High Blood Pressure ED Add. Discharge Instructions: 1. Abdominal pain and gastritis - Discontinue alcohol completely. Use Ativan as prescribed if you start developing withdrawal symptoms such as mental status changes, agitation, tremoring, high blood pressure, etc. Add Carafate to your Protonix (pantoprazole). Dissolve it or crush it and mix with about 5 to 10 mL water to make a slurry. Take 30 minutes before meals and again at bedtime (4 times daily). Avoid the following: Eating large meals, eating close to bedtime, caffeine, carbonation, chocolate, citrus fruits and juices, tomato products, alcohol, tobacco, NSAID medications such as ibuprofen or naproxen, fatty/greasy foods, spicy foods, mints, or anything else you know irritates your stomach. Work toward quitting smoking. Seek assistance from your primary care provider if needed. Follow-up with Dr. Dunn and your primary care provider soon as possible. You need to arrange for repeat endoscopy. Discuss other work-up that may be appropriate such as gallbladder ultrasound. 2. High blood pressure - Increase your metoprolol to 100 mg twice daily. Discuss this further with your primary care provider in follow-up. If you are experiencing lightheadedness or dizziness due to the increased dose, go back to the 100 mg daily. 3. Low magnesium - Double your magnesium dose for the next few days. Try to eat a well-balanced diet with plenty of fruits and vegetables. 4. Alcohol dependence - If you are unable to completely quit alcohol with your own efforts, please enlist the help of your doctor and other support network such as AA. A list of some resources is provided below. 5. Chest pain - Your chest pain does not seem to be caused by a primary heart or lung problem based on your ER work-up. However, a comprehensive work-up could not be completed in the ER. You should discuss this further with your doctor and inquire about stress testing or a consultation with a carton liner. Your chest pain may be due to acid reflux and esophagitis (inflammation of the esophagus). 6. Headaches - Hopefully improving blood pressure control will help with headaches. If not, please discuss further with your primary care provider. Fur ther work-up may be necessary. Other labs may be valuable such as checking a thyroid or vitamin D level at the discretion of your primary care provider. 7. Return to the ER if you have worsening symptoms despite following these instructions. All discharge instructions reviewed with patient and/or family. Voiced understanding. Scripts Lorazepam (Ativan) 0.5 Mg Tablet 1-2 TAB PO Q4H PRN for ANXIETY, #10 TAB 1 to 2 tablets every 4 hours as needed to control withdrawal symptoms. Prov: JOHN ESPITIA MD 07/27/22 Sucralfate (Carafate) 1 Gram Tablet 1 GM PO QID, #120 TAB Prov: JOHN ESPITIA MD 07/27/22 Copy Copies To 1: MAYITO DUNN JOSHUA T MD Jul 27, 2022 14:02
--- NOTE | 2022-07-27 14:05 | Diagnostic Imaging Report ---
EXAMINATION: Chest 1 view HISTORY: Chest pain COMPARISON: None available. FINDINGS: Heart size and pulmonary vasculature are normal. The lungs are clear without consolidation, pleural effusion, or pneumothorax. Degenerative changes of the thoracic spine. Osseous structures are otherwise intact. IMPRESSION: 1. No acute radiographic abnormality in the chest. Dictated by: Dictated on workstation # [id number]
[2022-07-27 14:06] LABS: BASOPHILS # (AUTO) 0.1 10^3/uL (0.0-0.1); BASOPHILS % (AUTO) 1 % (0-10); EOSINOPHILS # (AUTO) 0.1 10^3/uL (0.0-0.3); EOSINOPHILS % (AUTO) 1 % (0-10); HEMATOCRIT 40 % (40-54); HEMOGLOBIN 14.7 g/dL (13.3-17.7); LYMPHOCYTES # (AUTO) 2.1 10^3/uL (1.0-4.0); LYMPHOCYTES % (AUTO) 32 % (12-44); MEAN CORPUSCULAR HEMOGLOBIN 34 pg (25-34); MEAN CORPUSCULAR HGB CONC 37 g/dL (32-36); MEAN CORPUSCULAR VOLUME 92 fL (80-99); MEAN PLATELET VOLUME 8.9 fL (9.0-12.2); MONOCYTES # (AUTO) 0.8 10^3/uL (0.0-1.0); MONOCYTES % (AUTO) 12 % (0-12); NEUTROPHILS # (AUTO) 3.6 10^3/uL (1.8-7.8); NEUTROPHILS % (AUTO) 54 % (42-75); PLATELET COUNT 263 10^3/uL (130-400); WHITE BLOOD COUNT 6.7 10^3/uL (4.3-11.0)
[2022-07-27 14:17] LABS: ALBUMIN 4.3 GM/DL (3.2-4.5); INR 1.1 (0.8-1.4); PROTHROMBIN TIME PATIENT 14.8 SEC (12.2-14.7)
[2022-07-27 14:18] LABS: POTASSIUM 4.4 MMOL/L (3.6-5.0)
[2022-07-27 14:19] LABS: CALCIUM 9.2 MG/DL (8.5-10.1)
[2022-07-27 14:20] LABS: TOTAL PROTEIN 7.1 GM/DL (6.4-8.2)
[2022-07-27 14:22] LABS: BILIRUBIN,TOTAL 0.4 MG/DL (0.1-1.0)
[2022-07-27 14:24] LABS: CREATININE SERUM 0.81 MG/DL (0.60-1.30)
[2022-07-27 14:27] LABS: MAGNESIUM 1.3 MG/DL (1.6-2.4)
[2022-07-27 14:28] LABS: LIPASE 29 U/L (8-78)
[2022-07-27] MEDS ORDERED: NS 100 ML (IVPB) BAG IV ONE (15:00)
[2022-07-27] MEDS ORDERED: MAGNESIUM 1 GM/100 ML IVPB 100 ML IV ONE (15:00)
[2022-07-27] MEDS ORDERED: IOHEXOL 350 MG/ML 100 ML (OMNIPAQUE 350) VIAL IV ONE (15:00)
[2022-07-27] MEDS ORDERED: HOLD METFORMIN - RECEIVED CONTRAST 20 ML VIAL IV SCH (15:00)
--- NOTE | 2022-07-27 15:17 | Diagnostic Imaging Report ---
PROCEDURE: CT head without contrast. TECHNIQUE: Multiple contiguous axial images were obtained through the brain without the use of intravenous contrast. Auto Exposure Controls were utilized during the CT exam to meet ALARA standards for radiation dose reduction. INDICATION: Chest pain, abdominal pain. Headache. COMPARISON: None. FINDINGS: The ventricles and cortical sulci are age-appropriate. There is no midline shift or mass effect. No acute intracranial hemorrhage is seen. There is no CT evidence of acute territorial ischemia. The calvarium appears intact. Visualized paranasal sinuses are clear. IMPRESSION: No acute intracranial hemorrhage or CT evidence of acute territorial ischemia. Dictated by: Dictated on workstation # [id number]
--- NOTE | 2022-07-27 15:39 | Diagnostic Imaging Report ---
EXAMINATION: CT angiography of the chest, CT of the abdomen and pelvis. TECHNIQUE: Contrast enhanced thin section helical images were obtained through the chest, abdomen and pelvis with intravenous contrast timed for the optimal opacification of the arterial structures of the chest per CTA protocol. Post-processing, reconstructions and interpretation of angiographic images of the vessels was performed. 3D MIP reconstructions were performed and reviewed. All CT scans use one or more of the following dose optimizing techniques: automated exposure control, MA and/or KvP adjustment based on patient size and exam type or iterative reconstruction. HISTORY: Chest pain, abdominal pain. COMPARISON: 11/22/2017. FINDINGS: Vascular: No filling defect within the pulmonary arteries. Thoracic aorta is normal in caliber. Calcification of the aorta and coronary vessels. Thyroid: The thyroid is normal. Mediastinum: Heart size is normal without significant pericardial effusion. No suspicious lymphadenopathy. Lungs and airways: The lungs are clear without consolidation, pleural effusion or pneumothorax. The airways are normal. Solid organs: The liver is normal without focal lesion. The gallbladder is normal. There is no biliary ductal dilation. Pancreas is normal. Spleen is normal. Adrenal glands are normal. The kidneys are normal without hydronephrosis. Bowel: There is diffuse wall thickening of the stomach. A duodenal diverticulum is present. There is no bowel obstruction. The colon and appendix are normal. Peritoneum: There is no intraperitoneal free fluid or free air. No suspicious lymphadenopathy. Vasculature: Calcification of the aorta without aneurysm. Musculoskeletal: Degenerative changes of the spine without suspicious osseous lesion or compression fracture. Pelvis: The prostate gland is normal. The urinary bladder is normal. IMPRESSION: 1. No finding of pulmonary embolus. 2. No other acute abnormality in the chest, abdomen or pelvis. 3. Diffuse wall thickening of the stomach which could be seen with gastritis. Dictated by: Dictated on workstation # [id number]
[2022-07-27] MEDS ORDERED: LORA-404 PO (16:12)
[2022-07-27] MEDS ORDERED: SUCR1TAB36 PO (16:12)
[2022-07-27 16:29] VITALS: BP 140/71
== END 2022-07-27 16:31 | disposition home or self-care (01) ==
LOC: EDUNIT# 13:10 → ER 13:12
DX: K29.20 Alcoholic gastritis without bleeding (principal); F10.20 Alcohol dependence, uncomplicated; R07.89 Other chest pain; E83.42 Hypomagnesemia; I10 Essential (primary) hypertension; F17.210 Nicotine dependence, cigarettes, uncomplicated; Y90.0 Blood alcohol level of less than 20 mg/100 ml
CPT/HCPCS: 70450; 71045; 71275; 74177; 80053; 83690; 83735; 83874; 84484; 85025; 85610; 85730; 86141; 93005; 93041; 99284; G0480; 36415; 80320

== ENCOUNTER → 2022-08-17 | Outpatient (CLI) | payer BC ==
[~2022-08-17] MED LIST changes: +LORA-404 PO; +SUCR1TAB36 PO
--- NOTE | 2022-08-17 13:59 | Diagnostic Imaging Report ---
INDICATION: Low back pain. COMPARISON: None. DISCUSSION: Three views lumbosacral spine were obtained. Advanced degenerative disc disease and facet arthropathies noted diffusely. Multiple syndesmophytes are present. No acute fracture or subluxation. Alignment is anatomic. Atherosclerotic plaques noted throughout the aorta. Remainder of the soft tissues are unremarkable. IMPRESSION: 1. Advanced degenerative changes noted throughout the lumbar spine. No acute abnormality. Dictated by: Dictated on workstation # [id number]
--- NOTE | 2022-08-17 14:00 | Diagnostic Imaging Report ---
INDICATION: Pain COMPARISON: 07/27/2022 TECHNIQUE: 5 radiographs of the pelvis and bilateral hips dated 08/17/2022. FINDINGS: Moderate degenerative changes within the partially visualized lower lumbar spine. The sacroiliac joints and pubic symphysis are intact. No acute fracture or dislocation. No effective osseous process. Mild degenerative changes in the bilateral hips. Bilateral femoral heads maintain a normal shape and contour. IMPRESSION: No acute osseous abnormality with mild degenerative changes of the bilateral hips and moderate degenerative changes in the partially visualized lower lumbar spine. Dictated by: Dictated on workstation # [id number]
== END ==
LOC: RAD 12:13
PROVIDERS: ATTEND Nurse Practitioner Family
DX: M47.26 Other spondylosis with radiculopathy, lumbar region (principal); M16.0 Bilateral primary osteoarthritis of hip; J20.8 Acute bronchitis due to other specified organisms; I10 Essential (primary) hypertension
CPT/HCPCS: 72100; 73523

== ENCOUNTER → 2022-08-22 | Outpatient (CLI) | payer BC ==
--- NOTE | 2022-08-22 10:20 | Diagnostic Imaging Report ---
Clinical Indication: Patient with low back pain with no known injury. Exam: MRI of the lumbar spine performed without IV contrast. Sagittal T2, sagittal T1, sagittal T2 fat-sat, and axial T2. Comparison: X-ray of the lumbar spine dated 08/17/2022. Findings: There is no acute lumbar spine fracture or dislocation. There is straightening of lumbar spine posture. There is heterogeneous low/high T1/T2 signal of the lumbar spine. There are moderate to severely hypertrophic spurs seen throughout the lumbar spine. There is bilateral facet arthropathy/hypertrophy. The visualized portions of the distal thoracic spinal cord, conus medullaris, and cauda equina nerve roots are unremarkable. The conus medullaris tip is seen at the upper L2 vertebral body level. There is a partially exophytic cyst involving the left kidney which measures at least 1.5 cm. The visualized portions of the distal thoracic spinal cord, conus medullaris, and cauda equina nerve roots are unremarkable. The conus medullaris tip is seen at the mid L1 vertebral body level. There is no significant paraspinal soft tissue abnormality. L1-L2: There is mild diffuse disk bulge moderate loss of disk space height. There is mild to moderate bilateral facet arthropathy. There is mild central canal stenosis. There is mild left neural foramen narrowing and no significant right neural foramen narrowing. L2-L3: There is a diffuse disk bulge moderate loss of disk space height. There is moderate bilateral facet arthropathy. There is moderate central canal stenosis. There is moderate to severe bilateral neural foramen narrowing. L3-L4: There is a diffuse disk bulge and moderate loss of disk space height. There is moderate bilateral facet arthropathy/hypertrophy. There is severe bilateral neural foramen narrowing. There is severe central canal stenosis. L4-L5: There is diffuse disk bulge with severe loss of disk space height with disk spurs extend into the foraminal regions bilaterally. There is severe right facet arthropathy/hypertrophy and moderate left facet arthropathy. There is severe central canal stenosis and severe bilateral neural foramen narrowing. L5-S1: There is a diffuse disk bulge and moderate loss of disk space height. There is severe bilateral facet arthropathy. There is no significant central canal stenosis. There is moderate right neural foramen narrowing and severe left neural foramen narrowing. IMPRESSION: 1: There is no acute lumbar spine fracture or dislocation. 2: There is severe multilevel lumbar spine degenerative disk disease, as described above. Dictated by: Dictated on workstation # [id number]
== END ==
LOC: RAD 07:04
PROVIDERS: ATTEND Nurse Practitioner Family
DX: M47.27 Other spondylosis with radiculopathy, lumbosacral region (principal); M51.17 Intervertebral disc disorders with radiculopathy, lumbosacral region; M48.07 Spinal stenosis, lumbosacral region; J20.8 Acute bronchitis due to other specified organisms; I10 Essential (primary) hypertension
CPT/HCPCS: 72148